=== PATIENT | female | born 1945 | race Caucasian/White ===

== ENCOUNTER 2019-12-28 11:13 | Outpatient (CLI) | payer OTHER, SELFPAY ==
[2019-12-28 11:25] LABS: Basophils Absolute Auto 0.1 K/mm3 (0.0-0.1); Basophils Percent Auto 1.4 % (0.2-1.2); Eosinophils Absolute Auto 0.1 K/mm3 (0-0.3); Eosinophils Percent Auto 1.6 % (0-4.4); Hematocrit 41.4 % (37.0-47.0); Hemoglobin 13.7 g/dL (12.0-15.0); Immature Granulocyte Absolute 0.01 K/mm3 (0.00-0.031); Immature Granulocyte Percent A 0.2 % (0-0.5); Lymphocytes Percent Auto 22.4 % (18.3-44.2); Mean Corpuscular HGB Conc 33.1 g/dl (32-36); Mean Corpuscular Hemoglobin 29.8 pg (26-34); Mean Corpuscular Volume 90.2 fl (80-100); Mean Platelet Volume 10.6 fl (7.4-10.4); Monocytes Absolute Auto 0.6 K/mm3 (0.1-0.6); Monocytes Percent Auto 9.3 % (2.6-8.5); Neutrophils Absolute Auto 4.1 K/mm3 (1.3-6.7); Neutrophils Percent Auto 65.1 % (45.5-73.1); Platelet Count Result 226 k/mm3 (150-375); Red Blood Count 4.59 M/mm3 (4.2-5.4); Red Cell Distribution Width 14.5 % (11.5-14.5); White Blood Count 6.2 K/mm3 (4.5-10.0)
[2019-12-28 11:42] LABS: Blood Urea Nitrogen 16 mg/dL (8-26); Carbon Dioxide 28 mmol/L (22-30); Chloride 103 mmol/L (98-109); Estimated Glomerular Filt Rate > 60; Glucose 92 mg/dL (70-105); Potassium 3.6 mmol/L (3.5-4.9); Sodium 140 mmol/L (138-146)
[2019-12-28 12:13] LABS: Alanine Aminotransferase 101 U/L (4-35); Albumin Level 3.8 g/dL (3.5-5.1); Alkaline Phosphatase 132 U/L (38-126); Aspartate Amino Transferase 85 U/L (14-36); Bilirubin,Total 0.9 mg/dL (0.2-1.3); Blood Urea Nitrogen 17 mg/dL (7-17); Calcium 9.4 mg/dL (8.4-10.2); Carbon Dioxide 27 mmol/L (22-30); Chloride 105 mmol/L (98-107); Estimated Glomerular Filt Rate > 60; Glucose 90 mg/dL (65-105); Potassium 3.8 mmol/L (3.4-5.0); Sodium 139 mmol/L (137-145)
[2019-12-31 10:04] LABS: CA 27.29 24 U/mL (<38)
== END 2019-12-28 11:14 | disposition home or self-care (01) ==
LOC: ANHLAB 11:15
PROVIDERS: PCP Internal Medicine; Visit Provider Internal Medicine Hematology & Oncology
DX: C50.412 Malignant neoplasm of upper-outer quadrant of left female breast (principal); Z17.0 Estrogen receptor positive status [ER+]
CPT/HCPCS: 36415; 80048; 80053; 85025; 86300

== ENCOUNTER 2020-02-14 08:45 | Outpatient (CLI) | payer OTHER, SELFPAY ==
--- NOTE | ~2020-02-14 | DEXA_ITS ---
Bone Density Report Name: Ellie Ga Age: 74 Sex: Female Ethnicity: White Date of : 1945 Indication: postmenopausal; height loss; prior fracture; cancer; hysterectomy; Referring Provider: Joce Clancy Study: Bone densitometry was performed. Exam Date: February 14, 2020 Accession number: [id number] Bone Density: Region BMD T-score Z-score Classification AP Spine (L1-L4) 1.020 -0.2 2.1 Normal Femoral Neck (Left) 0.734 -1.0 1.0 Normal Total Hip (Left) 0.907 -0.3 1.4 Normal Total Hip Bilateral Avg 0.898 -0.4 1.3 Normal Femoral Neck (Right) 0.773 -0.7 1.3 Normal Total Hip (Right) 0.887 -0.4 1.2 Normal World Health Organization criteria for BMD impression classify patients as: Normal (T-score at or above -1.0), Osteopenia (T-score between -1.0 and -2.5), or Osteoporosis (T-score at or below -2.5). 10-year Fracture Risk: FRAX not reported because: All T-scores for Spine Total, Hip Total, Femoral Neck at or above -1.0 Previous Exams: Region Exam Age BMD T-score BMD Change BMD Change Date g/cm2 vs Baseline vs Previous AP Spine(L1-L4) 02/14/2020 74 1.020 -0.2 0.005(0.5%)# -0.007(-0.7%)# 12/22/2012 67 1.027 -0.2 0.011(1.1%)# -0.043(-4.0%)# 08/05/2008 62 1.070 0.2 0.055(5.4%)* 0.055(5.4%)* 01/08/2005 59 1.016 -0.3 Total Hip(Left) 02/14/2020 74 0.907 -0.3 0.003(0.3%)# -0.025(-2.7%)# 12/22/2012 67 0.933 -0.1 0.028(3.1%)# 0.017(1.8%)# 08/05/2008 62 0.916 -0.2 0.012(1.3%) 0.012(1.3%) 01/08/2005 59 0.904 -0.3 Total Hip(Right) 02/14/2020 74 0.887 -0.4 -0.052(-5.5%)# -0.027(-3.0%)# 12/22/2012 67 0.914 -0.2 -0.025(-2.6%)# -0.021(-2.3%)# 08/05/2008 62 0.936 -0.1 -0.003(-0.4%) -0.003(-0.4%) 01/08/2005 59 0.939 0.0 *Denotes significance at 95% confidence level, LSC for AP Spine = 0.022 g/cm2, LSC for Total Hip = 0.027 g/cm2 Clinical Information Provided by Patient: Has had a low trauma fracture Has used the following medications: Vitamin D, Calcium Has the following medical conditions: Cancer, Hysterectomy Patient maximum height was 63.5 Menopause Age: 52 No regular weight bearing exercise Drinks caffeinated beverages Onset of menses at age 13 Number of children 2 Impression: The patient has normal bone mass. The patient has risk factors, including: previous fracture. No significant bone loss was observed. Discussion: BONE DENSITY IS ABOVE THE MINIMUM DESIRABLE LEV
== END 2020-02-14 08:46 | disposition home or self-care (01) ==
LOC: ANHIMG 08:47
PROVIDERS: PCP Internal Medicine; Visit Provider Internal Medicine Hematology & Oncology
DX: M85.89 Other specified disorders of bone density and structure, multiple sites (principal)
CPT/HCPCS: 77080

== ENCOUNTER 2020-03-13 11:01 | Outpatient (CLI) | payer MEDICARE, SELFPAY ==
--- NOTE | ~2020-03-13 | MMUS_ITS ---
EXAMINATION: MM diagnostic olga LT w patty, US breast LT complete HISTORY: Six-month follow-up of left breast; status post partial left mastectomy for breast cancer, F ebruary 2019 TECHNIQUE: ML, MLO and cc 3-D tomosynthesis images of the left breast were performed and synthetic 2- D images were generated. Rotated lateral craniocaudal view of left breast. CAD analysis was submitted and interpreted. High resolution breast ultrasound was performed. COMPARISON: 08/23/2019 bilateral diagnostic digital mammogram 11/30/2018 left mammographic localization 09/24/2018 bilateral Limited breast ultrasound BREAST PARENCHYMAL COMPOSITION: There are scattered areas of fibroglandular density. FINDINGS: MAMMOGRAPHIC FINDINGS: Surgical clips and associated soft tissue opacity are noted at the very posterior margin of the inner aspect of the lower outer quadrant of the left breast; these are likely postoperative changes, with some diminished surrounding density compared to 08/23/2019. There are benign calcifications. No interval suspicious mass or new architectural distortion or malig nant calcification, skin thickening or retraction is evident. ULTRASOUND: At 4:00 5 cm from the nipple there is an antiparallel irregular approximately 7 mm area of hypoechoge nicity with posterior shadowing. Ultrasound-guided biopsy is recommended. Probable postoperative seroma at 5:00 7 cm from the nipple in the area of the scar. No internal vascu larity is noted at this site. IMPRESSION: 1. Status post left partial mastectomy for breast cancer, with probable postoperative seroma at 5:00 7 cm from nipple 2. Ultrasound-guided biopsy of left breast 7 mm irregular hypoechoic lesion at at 4:00 5 cm from nipp le is recommended BI-RADS category 4, suspicious findings. Dr. Noriega notified Taylor of the findings and ultrasound guided biopsy recommendation on 04/01/2020 at 14 40 hours. Reviewed, dictated and finalized at location A. IMPRESSION: 1. Status post left partial mastectomy for breast cancer, with probable postope rative seroma at 5:00 7 cm from nipple 2. Ultrasound-guided biopsy of left breast 7 mm irregular hypoechoic lesion at at 4:00 5 cm from nipple is recommended BI-RADS category 4, suspicious findings. Dr. Noriega notified Taylor of the findings and ultrasound guided biopsy recommendat ion on 04/01/2020 at 1440 hours.
== END 2020-03-13 11:02 | disposition home or self-care (01) ==
PROVIDERS: PCP Internal Medicine; Visit Provider Internal Medicine Hematology & Oncology
DX: C50.412 Malignant neoplasm of upper-outer quadrant of left female breast (principal); Z17.0 Estrogen receptor positive status [ER+]; R92.8 Other abnormal and inconclusive findings on diagnostic imaging of breast
CPT/HCPCS: 76641; 77061; 77065; G0279

== ENCOUNTER 2020-03-21 11:02 | Outpatient (CLI) | payer MEDICARE, SELFPAY ==
[2020-03-21 11:18] LABS: Basophils Absolute Auto 0.1 K/mm3 (0.0-0.1); Basophils Percent Auto 1.2 % (0.2-1.2); Eosinophils Absolute Auto 0.1 K/mm3 (0-0.3); Eosinophils Percent Auto 1.5 % (0-4.4); Hemoglobin 14.5 g/dL (12.0-15.0); Immature Granulocyte Absolute 0.01 K/mm3 (0.00-0.031); Immature Granulocyte Percent A 0.2 % (0-0.5); Lymphocytes Absolute Auto 1.41 K/mm3 (0.9-3.2); Lymphocytes Percent Auto 21.8 % (18.3-44.2); Mean Corpuscular Hemoglobin 29.9 pg (26-34); Mean Corpuscular Volume 90.7 fl (80-100); Mean Platelet Volume 10.8 fl (7.4-10.4); Monocytes Absolute Auto 0.6 K/mm3 (0.1-0.6); Monocytes Percent Auto 8.8 % (2.6-8.5); Neutrophils Absolute Auto 4.3 K/mm3 (1.3-6.7); Neutrophils Percent Auto 66.5 % (45.5-73.1); Platelet Count Result 237 k/mm3 (150-375); Red Blood Count 4.85 M/mm3 (4.2-5.4); Red Cell Distribution Width 14.7 % (11.5-14.5); White Blood Count 6.5 K/mm3 (4.5-10.0)
[2020-03-21 11:23] LABS: Blood Urea Nitrogen 20 mg/dL (8-26); Carbon Dioxide 28 mmol/L (22-30); Chloride 102 mmol/L (98-109); Estimated Glomerular Filt Rate > 60; Glucose 92 mg/dL (70-105); Potassium 3.5 mmol/L (3.5-4.9); Sodium 142 mmol/L (138-146)
[2020-03-21 12:42] LABS: Alanine Aminotransferase 71 U/L (4-35); Albumin Level 4.2 g/dL (3.5-5.1); Alkaline Phosphatase 143 U/L (38-126); Aspartate Amino Transferase 58 U/L (14-36); Bilirubin,Total 1.1 mg/dL (0.2-1.3); Blood Urea Nitrogen 20 mg/dL (7-17); Calcium 9.5 mg/dL (8.4-10.2); Carbon Dioxide 30 mmol/L (22-30); Chloride 103 mmol/L (98-107); Estimated Glomerular Filt Rate > 60; Glucose 94 mg/dL (65-105); Potassium 3.8 mmol/L (3.4-5.0); Sodium 140 mmol/L (137-145)
== END 2020-03-21 11:03 | disposition home or self-care (01) ==
LOC: ANHLAB 11:04
PROVIDERS: PCP Internal Medicine; Visit Provider Internal Medicine Hematology & Oncology
DX: C50.412 Malignant neoplasm of upper-outer quadrant of left female breast (principal); Z17.0 Estrogen receptor positive status [ER+]
CPT/HCPCS: 36415; 80048; 80053; 85025

== ENCOUNTER 2020-03-28 13:02 | Outpatient (CLI) | payer MEDICARE, SELFPAY ==
--- NOTE | ~2020-03-28 | US_ITS ---
EXAMINATION: US breast LT limited HISTORY: Patient with history of malignant neoplasm of the left breast status post lumpectomy presen ts for biopsy of an indeterminate left breast mass TECHNIQUE: Limited left breast ultrasound is performed. COMPARISON: 03/13/2020, 11/30/2018 FINDINGS: The area of concern on recent diagnostic mammogram and ultrasound in the lower outer quadra nt of the breast appears to be contiguous with a subtle scar in the skin surface and likely reflects postoperative change. This was discussed with the patient and a plan for follow-up diagnostic left ma mmogram and ultrasound in six months was decided upon. IMPRESSION: Probably benign scarring in the left breast post lumpectomy. Recommend follow-up left diagnostic mamm ogram and ultrasound in six months. BI-RADS category 3, probably benign findings. Reviewed, dictated and finalized at location A. IMPRESSION: Probably benign scarring in the left breast post lumpectomy. Recommend follow-u p left diagnostic mammogram and ultrasound in six months. BI-RADS category 3, probably benign findings.
== END 2020-03-28 13:03 | disposition home or self-care (01) ==
PROVIDERS: PCP Internal Medicine; Visit Provider Internal Medicine Hematology & Oncology
DX: C50.412 Malignant neoplasm of upper-outer quadrant of left female breast (principal); Z17.0 Estrogen receptor positive status [ER+]
CPT/HCPCS: 76642

== ENCOUNTER 2020-06-16 09:05 | Outpatient (CLI) | payer MEDICARE, SELFPAY ==
[2020-06-16 09:29] LABS: Basophils Absolute Auto 0.1 K/mm3 (0.0-0.1); Basophils Percent Auto 1.5 % (0.2-1.2); Eosinophils Absolute Auto 0.1 K/mm3 (0-0.3); Eosinophils Percent Auto 1.8 % (0-4.4); Hematocrit 45.4 % (37.0-47.0); Hemoglobin 14.9 g/dL (12.0-15.0); Immature Granulocyte Absolute 0.01 K/mm3 (0.00-0.031); Immature Granulocyte Percent A 0.2 % (0-0.5); Lymphocytes Absolute Auto 1.23 K/mm3 (0.9-3.2); Lymphocytes Percent Auto 22.7 % (18.3-44.2); Mean Corpuscular HGB Conc 32.8 g/dl (32-36); Mean Corpuscular Hemoglobin 29.6 pg (26-34); Mean Corpuscular Volume 90.1 fl (80-100); Mean Platelet Volume 10.8 fl (7.4-10.4); Monocytes Absolute Auto 0.6 K/mm3 (0.1-0.6); Monocytes Percent Auto 10.7 % (2.6-8.5); Neutrophils Absolute Auto 3.4 K/mm3 (1.3-6.7); Neutrophils Percent Auto 63.1 % (45.5-73.1); Platelet Count Result 226 k/mm3 (150-375); Red Blood Count 5.04 M/mm3 (4.2-5.4); Red Cell Distribution Width 14.2 % (11.5-14.5); White Blood Count 5.4 K/mm3 (4.5-10.0)
[2020-06-16 13:15] LABS: Alanine Aminotransferase 121 U/L (4-35); Albumin Level 4.3 g/dL (3.5-5.1); Alkaline Phosphatase 156 U/L (38-126); Anion Gap 10 mmol/L (8-16); Aspartate Amino Transferase 66 U/L (14-36); Bilirubin,Total 0.6 mg/dL (0.2-1.3); Blood Urea Nitrogen 20 mg/dL (7-17); Calcium 9.5 mg/dL (8.4-10.2); Carbon Dioxide 26 mmol/L (22-30); Chloride 102 mmol/L (98-107); Estimated Glomerular Filt Rate > 60; Glucose 99 mg/dL (65-105); Potassium 3.7 mmol/L (3.4-5.0); Sodium 138 mmol/L (137-145)
== END 2020-06-16 09:06 | disposition home or self-care (01) ==
PROVIDERS: PCP Internal Medicine; Visit Provider Internal Medicine Hematology & Oncology
DX: C50.412 Malignant neoplasm of upper-outer quadrant of left female breast (principal); Z17.0 Estrogen receptor positive status [ER+]
CPT/HCPCS: 36415; 80053; 85025

== ENCOUNTER 2020-09-15 09:05 | Outpatient (CLI) | payer MEDICARE, SELFPAY ==
[2020-09-15 09:34] LABS: Basophils Absolute Auto 0.1 K/mm3 (0.0-0.1); Basophils Percent Auto 1.5 % (0.2-1.2); Eosinophils Absolute Auto 0.1 K/mm3 (0-0.3); Eosinophils Percent Auto 2.4 % (0-4.4); Hematocrit 42.6 % (37.0-47.0); Immature Granulocyte Absolute 0.01 K/mm3 (0.00-0.031); Immature Granulocyte Percent A 0.2 % (0-0.5); Lymphocytes Absolute Auto 1.26 K/mm3 (0.9-3.2); Lymphocytes Percent Auto 26.9 % (18.3-44.2); Mean Corpuscular HGB Conc 32.9 g/dl (32-36); Mean Corpuscular Hemoglobin 29.9 pg (26-34); Mean Platelet Volume 10.5 fl (7.4-10.4); Monocytes Absolute Auto 0.6 K/mm3 (0.1-0.6); Monocytes Percent Auto 11.8 % (2.6-8.5); Neutrophils Absolute Auto 2.7 K/mm3 (1.3-6.7); Neutrophils Percent Auto 57.2 % (45.5-73.1); Platelet Count Result 246 k/mm3 (150-375); Red Blood Count 4.68 M/mm3 (4.2-5.4); Red Cell Distribution Width 14.6 % (11.5-14.5); White Blood Count 4.7 K/mm3 (4.5-10.0)
[2020-09-15 10:05] LABS: Alanine Aminotransferase 48 U/L (4-35); Albumin Level 3.7 g/dL (3.5-5.1); Alkaline Phosphatase 130 U/L (38-126); Anion Gap 7 mmol/L (8-16); Aspartate Amino Transferase 45 U/L (14-36); Bilirubin,Total 0.8 mg/dL (0.2-1.3); Blood Urea Nitrogen 16 mg/dL (7-17); Calcium 9.5 mg/dL (8.4-10.2); Carbon Dioxide 30 mmol/L (22-30); Chloride 104 mmol/L (98-107); Estimated Glomerular Filt Rate > 60; Glucose 105 mg/dL (65-105); Potassium 3.8 mmol/L (3.4-5.0); Sodium 141 mmol/L (137-145)
[2020-09-15 10:09] LABS: Hemoglobin A1C 5.4 % (<5.7)
[2020-09-15 13:25] LABS: Vitamin D 25 Hydroxy 83.8 ng/mL
== END 2020-09-15 09:06 | disposition home or self-care (01) ==
LOC: ANHLAB 09:06
PROVIDERS: PCP Internal Medicine; Visit Provider Internal Medicine Hematology & Oncology
DX: R73.03 Prediabetes (principal); C50.412 Malignant neoplasm of upper-outer quadrant of left female breast; Z17.0 Estrogen receptor positive status [ER+]; Z85.3 Personal history of malignant neoplasm of breast; Z78.0 Asymptomatic menopausal state; E55.9 Vitamin D deficiency, unspecified
CPT/HCPCS: 36415; 80053; 82306; 83036; 85025

== ENCOUNTER 2020-09-15 11:17 | Outpatient (CLI) | payer MEDICARE, SELFPAY ==
--- NOTE | ~2020-09-15 | MMUS_ITS ---
EXAMINATION: MM diagnostic olga BI w patty, US breast LT limited HISTORY: Six-month follow-up; status post left partial mastectomy and radiotherapy for breast maligna [id number]. History of right partial mastectomy and radiation treatment for right breast malignancy in 1995. TECHNIQUE: ML, MLO and craniocaudal 3-D tomosynthesis images of both breasts were performed and synth etic 2-D images were generated. Rotated lateral craniocaudal view of left breast. CAD analysis was pereira bmitted and interpreted. High resolution limited left breast ultrasound examination was performed. COMPARISON: 03/28/2020 limited left breast ultrasound 03/13/2020 diagnostic left digital mammogram and complete left breast ultrasound examination BREAST PARENCHYMAL COMPOSITION: There are scattered areas of fibroglandular density. FINDINGS: MAMMOGRAPHIC FINDINGS: Surgical clips and associated up to 12 x 27 mm soft tissue opacity is noted in the posterior inner as pect of the lower outer quadrant of the left breast, likely postoperative scarring. Six-month follow- up is recommended to ensure stability in order to exclude any possible residual or recurrent malignan cy at this site. No interval suspicious mass or new architectural distortion is evident. Bilateral benign calcificatio ns are again noted. ULTRASOUND: The previously reported antiparallel irregular approximately 7 mm area of hypoechogenicity with poste rior shadowing at 4:00 5 cm from the nipple noted on 03/13/2020 complete left breast ultrasound is not evident on the current examination. There is again stable prominent hypoechogenicity and posterior shadowing of the left breast at 5:00 p osterior to the scar,shadowing measuring up to approximately 11 x 10 x 25 mm. This is likely due to p ostoperative scar. Six-month follow-up is recommended. IMPRESSION: 6 month follow-up diagnostic left mammographic and left breast ultrasound imaging are recommended for probable postoperative scarring in the inner posterior aspect of the lower outer quadrant BI-RADS category 3, probably benign findings. Reviewed, dictated and finalized at location A. WAY MAINTAINER IMPRESSION: 6 month follow-up diagnostic left mammographic and left breast ultrasound imagi ng are recommended for probable postoperative scarring in the inner posterior a spect of the lower outer quadrant BI-RADS category 3, probably benign findings.
== END 2020-09-15 11:18 | disposition home or self-care (01) ==
LOC: ANHIMG 11:19
PROVIDERS: PCP Internal Medicine; Visit Provider Nurse Practitioner Adult Health
DX: C50.412 Malignant neoplasm of upper-outer quadrant of left female breast (principal); Z17.0 Estrogen receptor positive status [ER+]; R92.8 Other abnormal and inconclusive findings on diagnostic imaging of breast
CPT/HCPCS: 36415; 76642; 77062; 77066; 80053; 82306; 83036; 85025; G0279

== ENCOUNTER 2021-01-09 09:02 | Outpatient (CLI) | payer OTHER, SELFPAY ==
[2021-01-09 09:18] LABS: Basophils Absolute Auto 0.1 K/mm3 (0.0-0.1); Basophils Percent Auto 1.9 % (0.2-1.2); Eosinophils Absolute Auto 0.1 K/mm3 (0-0.3); Eosinophils Percent Auto 2.1 % (0-4.4); Hematocrit 43.8 % (37.0-47.0); Hemoglobin 14.4 g/dL (12.0-15.0); Immature Granulocyte Absolute 0.01 K/mm3 (0.00-0.031); Immature Granulocyte Percent A 0.2 % (0-0.5); Lymphocytes Absolute Auto 1.32 K/mm3 (0.9-3.2); Lymphocytes Percent Auto 27.2 % (18.3-44.2); Mean Corpuscular HGB Conc 32.9 g/dl (32-36); Mean Corpuscular Hemoglobin 30.4 pg (26-34); Mean Corpuscular Volume 92.4 fl (80-100); Mean Platelet Volume 10.2 fl (7.4-10.4); Monocytes Absolute Auto 0.6 K/mm3 (0.1-0.6); Monocytes Percent Auto 11.7 % (2.6-8.5); Neutrophils Absolute Auto 2.8 K/mm3 (1.3-6.7); Neutrophils Percent Auto 56.9 % (45.5-73.1); Platelet Count Result 243 k/mm3 (150-375); Red Blood Count 4.74 M/mm3 (4.2-5.4); Red Cell Distribution Width 14.6 % (11.5-14.5); White Blood Count 4.9 K/mm3 (4.5-10.0)
[2021-01-09 15:35] LABS: Alanine Aminotransferase 42 U/L (4-35); Albumin Level 4.5 g/dL (3.5-5.1); Alkaline Phosphatase 142 U/L (38-126); Anion Gap 9 mmol/L (8-16); Aspartate Amino Transferase 40 U/L (14-36); Bilirubin,Total 0.9 mg/dL (0.2-1.3); Blood Urea Nitrogen 13 mg/dL (7-17); Calcium 9.9 mg/dL (8.4-10.2); Carbon Dioxide 30 mmol/L (22-30); Chloride 102 mmol/L (98-107); Estimated Glomerular Filt Rate > 60; Glucose 99 mg/dL (65-105); Potassium 3.8 mmol/L (3.4-5.0); Sodium 141 mmol/L (137-145)
[2021-01-09 16:09] LABS: Vitamin D 25 Hydroxy 96.2 ng/mL
[2021-01-16 23:04] LABS: CA 15-3 17 U/mL (<32)
== END 2021-01-09 09:03 | disposition home or self-care (01) ==
LOC: ANHLAB 09:03
PROVIDERS: PCP Internal Medicine; Visit Provider Internal Medicine Hematology & Oncology
DX: C50.412 Malignant neoplasm of upper-outer quadrant of left female breast (principal); Z17.0 Estrogen receptor positive status [ER+]; Z85.3 Personal history of malignant neoplasm of breast; E55.9 Vitamin D deficiency, unspecified
CPT/HCPCS: 36415; 80053; 82306; 85025; 86300

== ENCOUNTER 2021-04-23 11:45 | Outpatient (CLI) | payer OTHER, SELFPAY ==
[2021-04-23 12:02] LABS: Basophils Absolute Auto 0.1 K/mm3 (0.0-0.1); Basophils Percent Auto 1.1 % (0.2-1.2); Eosinophils Absolute Auto 0.1 K/mm3 (0-0.3); Eosinophils Percent Auto 1.1 % (0-4.4); Hematocrit 44.3 % (37.0-47.0); Hemoglobin 14.5 g/dL (12.0-15.0); Immature Granulocyte Absolute 0.01 K/mm3 (0.00-0.031); Immature Granulocyte Percent A 0.2 % (0-0.5); Lymphocytes Absolute Auto 1.29 K/mm3 (0.9-3.2); Lymphocytes Percent Auto 19.5 % (18.3-44.2); Mean Corpuscular HGB Conc 32.7 g/dl (32-36); Mean Corpuscular Hemoglobin 30.1 pg (26-34); Mean Corpuscular Volume 91.9 fl (80-100); Mean Platelet Volume 10.6 fl (7.4-10.4); Monocytes Absolute Auto 0.6 K/mm3 (0.1-0.6); Monocytes Percent Auto 8.4 % (2.6-8.5); Neutrophils Absolute Auto 4.6 K/mm3 (1.3-6.7); Neutrophils Percent Auto 69.7 % (45.5-73.1); Platelet Count Result 231 k/mm3 (150-375); Red Blood Count 4.82 M/mm3 (4.2-5.4); Red Cell Distribution Width 14.2 % (11.5-14.5); White Blood Count 6.6 K/mm3 (4.5-10.0)
[2021-04-23 17:29] LABS: Potassium 3.9 mmol/L (3.4-5.0)
[2021-04-23 17:32] LABS: Alanine Aminotransferase 38 U/L (4-35); Albumin Level 4.2 g/dL (3.5-5.1); Alkaline Phosphatase 153 U/L (38-126); Anion Gap 9 mmol/L (8-16); Aspartate Amino Transferase 38 U/L (14-36); Bilirubin,Total 0.7 mg/dL (0.2-1.3); Blood Urea Nitrogen 17 mg/dL (7-17); Calcium 9.7 mg/dL (8.4-10.2); Carbon Dioxide 29 mmol/L (22-30); Chloride 102 mmol/L (98-107); Estimated Glomerular Filt Rate > 60; Glucose 99 mg/dL (65-105); Sodium 140 mmol/L (137-145)
[2021-04-29 13:54] LABS: CA 15-3 17 U/mL (<32)
== END 2021-04-23 11:46 | disposition home or self-care (01) ==
LOC: ANHLAB 11:47
PROVIDERS: PCP Internal Medicine; Visit Provider Internal Medicine Hematology & Oncology
DX: C50.412 Malignant neoplasm of upper-outer quadrant of left female breast (principal); Z17.0 Estrogen receptor positive status [ER+]
CPT/HCPCS: 36415; 80053; 85025; 86300

== ENCOUNTER 2021-04-23 12:02 | Outpatient (CLI) | payer OTHER, SELFPAY ==
--- NOTE | ~2021-04-23 | MMUS_ITS ---
EXAMINATION: MM diagnostic olga LT w patty, US breast LT limited HISTORY: Follow-up for probably benign focal asymmetry of the left breast TECHNIQUE: Craniocaudal, mediolateral, and mediolateral oblique 3-D tomosynthesis images of the left breast were performed and synthetic 2-D images were generated. CAD analysis was submitted and interpr eted. High resolution limited left breast ultrasound was performed. COMPARISON: 09/15/2020, 03/28/2020, 03/13/2020, 08/23/2019 BREAST PARENCHYMAL COMPOSITION: There are scattered areas of fibroglandular density. FINDINGS: MAMMOGRAPHIC FINDINGS: There are lumpectomy changes in the posterior third of the lower-outer breast. Focal asymmetry at the surgical site persists but has slightly decreased when compared to prior examinations. No new mass, calcification, or architectural distortion are identified. ULTRASOUND: Again seen is a heterogeneous cystic and solid area at the 5:00 location 10 cm from the nipple near t he surgical scar which does not demonstrate significant interval change since the prior examination. IMPRESSION: 1. Mammographic and sonographic changes of the left breast likely related to lumpectomy. 2. Recommend 6 month follow-up bilateral diagnostic mammogram with left breast ultrasound. BI-RADS category 3, probably benign findings. Reviewed, dictated and finalized at location A. IMPRESSION: 1. Mammographic and sonographic changes of the left breast likely related to martha mpectomy. 2. Recommend 6 month follow-up bilateral diagnostic mammogram with left breast ultrasound. BI-RADS category 3, probably benign findings.
== END 2021-04-23 12:03 | disposition home or self-care (01) ==
PROVIDERS: PCP Internal Medicine; Visit Provider Internal Medicine Hematology & Oncology
DX: C50.412 Malignant neoplasm of upper-outer quadrant of left female breast (principal); Z17.0 Estrogen receptor positive status [ER+]
CPT/HCPCS: 36415; 76642; 77061; 77065; 80053; 85025; 86300; G0279

== ENCOUNTER 2021-08-21 10:39 | Outpatient (CLI) | payer OTHER, SELFPAY ==
--- NOTE | ~2021-08-21 | CT_ITS ---
EXAMINATION: CT LE RT wo con DATE: 08/21/2021 11:06 INDICATION: Unilateral primary osteoarthritis, right knee. TECHNIQUE: Computed tomography (CT) of the right lower limb was performed without intravenous contras t. Automated exposure control and iterative reconstruction technique were employed. The dose-length p roduct was 1560.34 mGy-cm. COMPARISON: Right knee radiographs 05/24/2021 FINDINGS: There is varus angulation at the knee. No fracture. There is severe osteoarthritis of media l compartment and moderate osteoarthritis of lateral and patellofemoral compartments. There is a smal l knee joint effusion. There is mild right hip osteoarthritis. There is subcutaneous edema in the jeremias f and ankle. Achilles tendinopathy is noted. IMPRESSION: 1. Severe right knee osteoarthritis. 2. Small right knee joint effusion. 3. Mild right hip osteoarthritis. 4. Achilles tendinopathy. Reviewed, dictated and finalized at location A. EL CONSULTANT
== END 2021-08-21 10:40 | disposition home or self-care (01) ==
LOC: ANHIMG 10:44
PROVIDERS: PCP Internal Medicine; Visit Provider Orthopaedic Surgery
DX: M17.11 Unilateral primary osteoarthritis, right knee (principal); M25.461 Effusion, right knee; M16.11 Unilateral primary osteoarthritis, right hip; M76.61 Achilles tendinitis, right leg
CPT/HCPCS: 73700

== ENCOUNTER 2021-08-29 08:24 | Outpatient (CLI) | payer OTHER, SELFPAY ==
--- NOTE | 2021-08-29 09:02 | ECG_ITS ---
Measurements Intervals [place] Rate: 69 P: 14 [place]: 135 QRS: 42 QRSD: 102 T: 8 QT: 399 QTc: 428 Interpretive Statements SINUS RHYTHM LOW QRS VOLTAGE IN PRECORDIAL LEADS BASELINE ARTIFACT- V4-V6 BORDERLINE ECG Electronically Signed On 08-29-2021 9:15:26 [employer] by Sang Estrella D.O.
[2021-08-29 09:44] LABS: Hematocrit 43.1 % (37.0-47.0); Hemoglobin 14.2 g/dL (12.0-15.0)
[2021-08-29 10:00] LABS: Albumin Level 4.3 g/dL (3.5-5.1); Estimated Glomerular Filt Rate > 60; Glucose 94 mg/dL (65-110)
[2021-08-29 11:10] LABS: Hemoglobin A1C 5.6 % (<5.7)
== END 2021-08-29 08:25 | disposition home or self-care (01) ==
PROVIDERS: PCP Internal Medicine; Visit Provider Orthopaedic Surgery
DX: Z01.818 Encounter for other preprocedural examination (principal); M17.11 Unilateral primary osteoarthritis, right knee
CPT/HCPCS: 36415; 82040; 82565; 82947; 83036; 85014; 85018; 93005

== ENCOUNTER 2021-09-28 08:13 | Outpatient (CLI) | payer OTHER, SELFPAY ==
[2021-09-28 09:43] LABS: Urine Cotinine NEGATIVE
[2021-09-28 09:46] LABS: Anion Gap 8 mmol/L (8-16); Blood Urea Nitrogen 15 mg/dL (7-17); Calcium 9.4 mg/dL (8.4-10.2); Carbon Dioxide 28 mmol/L (22-30); Chloride 106 mmol/L (98-107); Estimated Glomerular Filt Rate > 60; Glucose 101 mg/dL (65-110); Potassium 3.7 mmol/L (3.4-5.0); Sodium 142 mmol/L (137-145)
[2021-09-28 09:48] LABS: Basophils Absolute Auto 0.1 K/mm3 (0.0-0.1); Basophils Percent Auto 2.3 % (0.2-1.2); Eosinophils Absolute Auto 0.1 K/mm3 (0-0.3); Eosinophils Percent Auto 2.3 % (0-4.4); Hematocrit 42.3 % (37.0-47.0); Hemoglobin 13.6 g/dL (12.0-15.0); Immature Granulocyte Absolute 0.02 K/mm3 (0.00-0.031); Immature Granulocyte Percent A 0.5 % (0-0.5); Lymphocytes Absolute Auto 1.13 K/mm3 (0.9-3.2); Lymphocytes Percent Auto 28.4 % (18.3-44.2); Mean Corpuscular HGB Conc 32.2 g/dl (32-36); Mean Corpuscular Hemoglobin 30.6 pg (26-34); Mean Corpuscular Volume 95.1 fl (80-100); Mean Platelet Volume 10.8 fl (7.4-10.4); Monocytes Absolute Auto 0.5 K/mm3 (0.1-0.6); Monocytes Percent Auto 12.8 % (2.6-8.5); Neutrophils Absolute Auto 2.1 K/mm3 (1.3-6.7); Neutrophils Percent Auto 53.7 % (45.5-73.1); Platelet Count Result 222 k/mm3 (150-375); Red Blood Count 4.45 M/mm3 (4.2-5.4); Red Cell Distribution Width 14.5 % (11.5-14.5)
== END 2021-09-28 08:14 | disposition home or self-care (01) ==
LOC: ANHSURGERY 08:14
PROVIDERS: Anesthesiology; PCP Internal Medicine; Visit Provider Orthopaedic Surgery
DX: M17.11 Unilateral primary osteoarthritis, right knee (principal); I10 Essential (primary) hypertension; Z01.818 Encounter for other preprocedural examination
CPT/HCPCS: 36415; 80048; 80307; 85025; 87081

== ENCOUNTER 2021-12-28 11:06 | Outpatient (CLI) | payer OTHER, SELFPAY ==
[2021-12-28 12:07] LABS: Basophils Absolute Auto 0.1 K/mm3 (0.0-0.1); Eosinophils Absolute Auto 0.1 K/mm3 (0-0.3); Eosinophils Percent Auto 0.7 % (0-4.4); Hematocrit 41.4 % (37.0-47.0); Hemoglobin 13.7 g/dL (12.0-15.0); Immature Granulocyte Absolute 0.02 K/mm3 (0.00-0.031); Immature Granulocyte Percent A 0.3 % (0-0.5); Lymphocytes Absolute Auto 0.81 K/mm3 (0.9-3.2); Lymphocytes Percent Auto 12.1 % (18.3-44.2); Mean Corpuscular HGB Conc 33.1 g/dl (32-36); Mean Corpuscular Hemoglobin 30.4 pg (26-34); Mean Corpuscular Volume 91.8 fl (80-100); Mean Platelet Volume 11.1 fl (7.4-10.4); Monocytes Absolute Auto 0.5 K/mm3 (0.1-0.6); Monocytes Percent Auto 6.9 % (2.6-8.5); Neutrophils Absolute Auto 5.3 K/mm3 (1.3-6.7); Platelet Count Result 242 k/mm3 (150-375); Red Blood Count 4.51 M/mm3 (4.2-5.4); Red Cell Distribution Width 14.6 % (11.5-14.5); White Blood Count 6.7 K/mm3 (4.5-10.0)
[2021-12-28 12:11] LABS: Urine Cotinine NEGATIVE
[2021-12-28 12:20] LABS: Albumin Level 4.3 g/dL (3.5-5.1)
[2021-12-28 12:25] LABS: Anion Gap 6 mmol/L (8-16); Blood Urea Nitrogen 14 mg/dL (7-17); Calcium 9.4 mg/dL (8.4-10.2); Carbon Dioxide 30 mmol/L (22-30); Chloride 104 mmol/L (98-107); Estimated Glomerular Filt Rate > 60; Glucose 104 mg/dL (65-110); Potassium 3.5 mmol/L (3.4-5.0); Sodium 140 mmol/L (137-145)
[2021-12-28 12:32] LABS: Hemoglobin A1C 5.4 % (<5.7)
== END 2021-12-28 11:07 | disposition home or self-care (01) ==
LOC: ANHSURGERY 11:09
PROVIDERS: Anesthesiology; PCP Internal Medicine; Visit Provider Orthopaedic Surgery
DX: M17.11 Unilateral primary osteoarthritis, right knee (principal); Z79.899 Other long term (current) drug therapy; Z01.818 Encounter for other preprocedural examination
CPT/HCPCS: 80048; 80307; 82040; 83036; 85025; 86850; 86900; 86901; 87081

== ENCOUNTER → 2021-12-29 00:28 | Outpatient (CLI) | payer OTHER, SELFPAY ==
[2021-12-29 11:30] LABS: SARS-CoV-2 RNA PCR Negative
== END ==
PROVIDERS: PCP Internal Medicine; Visit Provider Orthopaedic Surgery
DX: Z01.812 Encounter for preprocedural laboratory examination (principal); Z20.822 Contact with and (suspected) exposure to COVID-19
CPT/HCPCS: C9803; U0003; U0005

== ENCOUNTER 2022-01-01 | Day surgery (SDC) | payer OTHER, SELFPAY ==
--- NOTE | 2021-09-28 08:47 | PC.NURSE ---
Report to the Outpatient Waiting Room, entrance under the green pavilion located off [facility], at time _0600 on date _10/25/21 . OR Time: 0730 . - You and your visitor will be asked a series of questions to screen for COVID 19 for your protection. - A mask is required within the hospital. - Only one visitor is allowed at this time. Patient visitors will be guided where to wait when not with patient. Preoperative COVID Testing Requirements: No COVID Test needed if: (proof is required; if not received patient will have Rapid Test prior to entry) COVID TESTING 10/22/21 AT 0930 - Patient has received COVID Vaccine at least 14 days prior to procedure date or - Patient has positive COVID test result within last 90 days of surgery date. COVID Test needed if above criteria is not met If not COVID vaccinated a COVID test must be conducted within 72 hours of surgery and patient is asked to isolate self from time of testing until procedure. You will go to the [facility] for your COVID testing. The [facility] site is located at the corner of [address] [facility]. You will only be called if COVID results are positive and your surgeon may reschedule your elective surgery date. Patients may have clear liquids (water, carbonated beverages, clear teas, apple juice) until 3 hours prior to surgery with a maximum of 20 ounces. - No food from midnight until time of surgery - Infants may have breast milk until 4 hours before surgery, infant formula 6 hours prior to surgery. - Children will be allowed to drink immediately following surgery. If applicable, please bring a bottle or sippy cup to assist with drinking. Juice, water, soda, and popsicles are readily available. For infants on formula, please bring formula the day of surgery. Pacifiers are allowed. Take the following medications with a SIP of water the morning of surgery: _NONE Medications to discontinue per physician ____ASPIRIN,,IBURPOFEN,NIACIN 7DAYS PRE OP AND ALL VITAMINS AND SUPPLEMENTS 3 DAYS PRE OP Date to take last dose__10/17/21___--- 10/21/21 Please no make-up, nail albanian, hairspray, perfume, deodorant, or body powder the day of surgery. No jewelry (including any body piercings) or valuables the day of surgery, leave them at home. Please take a shower or bath the night before, or the morning of, surgery with an antibacterial soap. Wear comfortable, loose fitting clothing. Children are encouraged to wear pajamas. - Jewelry must be removed prior to entering the operating room. Rings and piercings that are not removed may be cut off. - The hospital will not accept responsibility for valuables. - Please leave all valuables, including medications, at home the day of surgery. TOTAL JOINT CLASS 10/17/21 AT 10 AM If you are going home after surgery, a licensed funeral car driver must drive you home. - NO public transportation without another adult. - We recommend that an adult stay with you for 24 hours following discharge. - We also recommend that you do not drive, make important decision, drink alcoholic beverages, or take any drugs that were not prescribed by your health care provider for at least 24 hours after your discharge time. For Pediatric surgeries, we recommend two adults accompany the child home (only one inside the building at this time). Follow any additional instructions given to you from your surgeon. VERBAL instructions given to _PATIENT and asked if any additional questions and then verbalized understanding. Patient advised to call surgeon office or pre surgery nurse liaison [phone] if any additional questions.
[2021-09-28 09:05] VITALS: BP 155/65; PULSE 66; RESP 16; TEMP 36.6; O2SAT 99
--- NOTE | 2021-12-25 13:23 | PC.NURSE ---
Report to the Outpatient Waiting Room, entrance under the green pavilion located off [facility], at time _0600_ on date _01/01/22_. OR Time: _0730_. - You and your visitor will be asked a series of questions to screen for COVID 19 for your protection. - A mask is required within the hospital. One visitor will be allowed to accompany the patient into the hospital. Patients visitor will be instructed to remain with patient at all times or leave the building. VISITING HOURS 10AM-7PM, ONE VISITOR ONE TIME A DAY Preoperative COVID Testing Requirements: COVID TEST SCHEDULED FOR 12/29/21 @ 0900 A COVID test must be conducted within 72 hours of surgery and patient is asked to isolate self from time of testing until procedure. You will go to the [facility] for your COVID testing. The [facility] Testing site is located at the corner of [address] [facility]. You will only be called if COVID results are positive and your surgeon may reschedule your elective surgery date. Patients may have clear liquids (water, carbonated beverages, clear teas, apple juice) until 3 hours prior to surgery (0430 AM) with a maximum of 20 ounces. - No food from midnight until time of surgery Take the following medications with a SIP of water the morning of surgery: __NONE__ Medications to discontinue per DR. OLIVIA - _ASPIRIN, IBUPROFEN, NIACIN -PT STATS ALREADY STOPPING 12/24/21_ Medications to discontinue per ANESTHESIA - _ALL VITAMINS AND SUPPLEMENTS, 3 DAYS PRIOR TO SURGERY, Date to take last dose_12/28/21_ Please no make-up, nail wallisian, hairspray, perfume, deodorant, or body powder the day of surgery. No jewelry (including any body piercings) or valuables the day of surgery, leave them at home. Please take a shower or bath the night before, or the morning of, surgery with an antibacterial soap. Wear comfortable, loose fitting clothing. - Jewelry must be removed prior to entering the operating room. Rings and piercings that are not removed may be cut off. - The hospital will not accept responsibility for valuables. - Please leave all valuables, including medications, at home the day of surgery. If you are going home after surgery, a licensed dump truck driver off highway must drive you home. - NO public transportation without another adult. - We recommend that an adult stay with you for 24 hours following discharge. - We also recommend that you do not drive, make important decision, drink alcoholic beverages, or take any drugs that were not prescribed by your health care provider for at least 24 hours after your discharge time. Follow any additional instructions given to you from your surgeon. Telephone instructions given to PT and asked if any additional questions and then verbalized understanding. Patient advised to call surgeon office or pre surgery nurse liaison [phone] if any additional questions.
[2021-12-25 13:28] VITALS: BMI 29.9
--- NOTE | 2021-12-31 15:47 | WPDANESEPPF ---
Anes - Initial Pre Proc Eval Procedure: Operation Date: 01/01/22 07:30 Proposed Procedures p Right Custom Total Knee Replacement - Keo Carey MD Date/Time: 12/31/21 15:47 Surgeon: Keo Carey MD Pre Op Diagnosis: Meena Arroyo Right Knee Patient Data Age: 76 Gender: F Height: 1.57 m Weight: 74.3 kg Last Vital Signs Temp 36.6 C 09/28/21 09:05 Pulse 66 09/28/21 09:05 Resp 16 09/28/21 09:05 BP 155/65 H 09/28/21 09:05 Pulse Ox 99 09/28/21 09:05 Allergies Allergy/AdvReac Type Severity Reaction Status Date / Time No Known Allergies Allergy Verified 01/01/22 06:51 Home Medications Medication Instructions Recorded Confirmed Type anastrozole 1 mg PO DAILY 08/06/19 01/01/22 History cinnamon bark 500 mg PO DAILY 08/06/19 01/01/22 History grape seed extract 300 mg PO DAILY 08/06/19 01/01/22 History niacin 2,000 mg PO DAILY 08/06/19 01/01/22 History elderberry fruit and flower 1 cap PO DAILY 08/10/19 01/01/22 History omega-3 fatty acids-fish oil 4 cap PO DAILY 08/10/19 01/01/22 History folic acid 0.8 mg capsule 0.8 mg PO DAILY 07/10/20 01/01/22 History vit C,E,zinc,copper-pxlnu3c 250 1 cap PO DAILY 09/01/20 01/01/22 History mg-lutein 5 mg-zeaxanthin 1 mg capsule biotin 5,000 mcg PO DAILY 03/27/21 01/01/22 History calcium carbonate 600 mg-vitamin 1 tablet PO BID 03/27/21 01/01/22 History D3 20 mcg (800 unit) tablet cholecalciferol (vitamin D3) 125 250 mcg PO DAILY cap 03/27/21 01/01/22 History mcg (5,000 unit) capsule ibuprofen 200 mg tablet 400 mg PO Q6-8H PRN tablet 03/27/21 01/01/22 History turmeric 1,000 mg PO DAILY 03/27/21 01/01/22 History bumetanide 1 mg tablet See Rx Instructions .ROUTE 07/02/21 01/01/22 Rx .COMPLEX #90 tablet trazodone 50 mg tablet See Rx Instructions PO QHS PRN #60 08/07/21 01/01/22 Rx tablet aspirin [Adult Low Dose Aspirin] 81 mg PO DAILY 09/28/21 01/01/22 History cyanocobalamin (vitamin B-12) 1,000 mcg PO DAILY 09/28/21 01/01/22 History atorvastatin 20 mg QAM 12/25/21 01/01/22 History potassium chloride 10 meq QAM 12/25/21 01/01/22 History Patient hx anesthesia problems: none Family hx anesthesia problems: none Results Review: All pre-operative results and documents have been reviewed as part of the pre-operative evaluation. [facility] Past Medical History Medical History (Updated 01/01/22 @ 07:04 by Elian Quick DO) Abnormal finding of blood chemistry BMI 33.0-33.9,adult Cataracts, bilateral Colon cancer screening DJD (degenerative joint disease) of knee Elevated homocysteine Elevated LFTs Encounter for Medicare annual wellness exam Encounter for routine adult health examination without abnormal findings Hearing loss History of fatty infiltration of liver History of right shoulder fracture Hx of breast cancer Hyperlipidemia Obesity (BMI 30.0-34.9) On [facility] drug therapy Pedal edema Pre-diabetes Right knee meniscal tear Vitamin D deficiency Surgical History Surgical History (Updated 12/31/21 @ 15:47 by Elian Quick DO) History of hysterectomy Family History Family History Father Family history of malignant neoplasm Grandparent Colon polyp Social History Social History Smoking status: Never smoker Second hand tobacco smoke exposure: No Additional smoking assessment comments: DENIES ANY FORM OF TOBACCO USE Alcohol intake: current Drinks per week: 2 Substance use: never Substance use type: does not use Living arrangements: with family Spiritual care concerns: No Anes - Eval Final PreProcedure Day of Procedure 12/31/21 15:47 Patient weight: obese Heart: regular rate and rhythm Lungs: clear to auscultation and normal air movement Airway: Mallampati scale class II Neurological: alert and oriented Last oral intake: >/= 8 hours ASA classification: III
--- NOTE | 2021-12-31 15:52 | WPDANESPNB ---
Anes - Peripheral Nerve Block Date/Time: 12/31/21 15:52 I have discussed with the patient/family/POA the placement of a peripheral nerve block for post-operative pain management, including associated risks, benefits, complications, and side effects. Alternative methods of post-operative analgesia were detailed. Questions were solicited and answers provided to the satisfaction of the patient/family/POA. Time-Out: A pre-procedural Time-Out was completed immediately before starting the procedure and confirmed: Patient Identification, Site, Procedure, Patient Position and the Availability of Requisite Equipment. Clinical Indications: Acute post-operative pain management requested by the operative surgeon. Nerve Block Insertion Note Anes-nerve block: adductor canal right Patient position: supine Skin prep: chlorhexidine Needle: 22 gauge, stimulating, insulated echogenic needle. Needle length: 80 mm Technique: ultrasound Injectate: bupivacaine 0.5% with epi 5 mcg/ml (30cc - no epi) Observations: tolerated well Complications: none Procedure start time:: 720 Procedure end time:: 723
[2022-01-01] VITALS (13 sets, daily range): BP systolic 106–137; BP diastolic 44–82; PULSE 72–98; RESP 10–19; TEMP 35.8–37.1; O2SAT 93–100; BMI 28.3
--- NOTE | ~2022-01-01 | XR_ITS ---
EXAMINATION: XR knee RT 2V DATE: 01/01/2022 10:27 INDICATION: Postoperative evaluation following right total knee arthroplasty. TECHNIQUE: Anteroposterior and lateral views of the right knee were obtained. COMPARISON: 05/24/2021 FINDINGS: Right total knee arthroplasty with patellar resurfacing appears well seated and in near anatomic alig nment. No fractures identified. Expected postoperative subcutaneous and intra-articular gas. IMPRESSION: 1. Right total knee arthroplasty, negative for postoperative purposes. Reviewed, dictated and finalized at location A.
[2022-01-01] MEDS: ACETAMINOPHEN 500 MG TABLET 1000 MG PO (07:03)
[2022-01-01] MEDS: LACTATED RINGERS 1,000 ML 30 ML IV CONT (07:12)
[2022-01-01] MEDS: TRANEXAMIC ACID 1,000MG/ISO100 1,000 MG/100 ML BAG 200 MG IVPB (07:12)
--- NOTE | 2022-01-01 07:18 | WPDHPUPDATE1 ---
History and Physical Update Update Date/Time: 01/01/22 07:18 History and Physical has been reviewed, including an updated exam of the patient. There are NO changes in the patient's condition. Risks, benefits, and alternatives have been discussed and questions answered. Patient agrees to proceed with procedure.
[2022-01-01] MEDS: ceFAZolin 2 GM/D5W 50 ML 2 GM/50 ML BAG IVPB ×3 (07:30→23:45)
--- NOTE | 2022-01-01 10:41 | W.PM.PROC2 ---
Procedure Note - Detailed Date of Procedure 01/01/22 Pre-op Diagnosis DJD Right Knee Post-op Diagnosis Same Procedure Performed Total knee arthroplasty, right. Surgeon Keo Carey MD Dip Tube Assembler Machine Elisabeth Hardin PA-C Anesthesia General and Regional (Subsartorial block.) Description of Procedure Physician spa assistant manager, Elisabeth Hardin PA-C, required for surgery; including patient positioning, draping, tissue retraction, maintaining instrument position, cement removal, wound closure, and dressing placement. Preoperative antibiotics were given. The limb was prepped and draped in the usual sterile fashion with a well-padded tourniquet high on the thigh. The limb was exsanguinated and the tourniquet inflated to 300 mmHg during exposure and cementing. A longitudinal incision was created just medial to the patella. A trivector approach to the knee was performed. Arthrotomy was taken down through the joint capsule. No significant releases were initially taken. The femur was exposed and the F1 jig was applied. The coring tool was used to remove the cartilage for the F2 jig to sit flush with the bone. The jig was pinned and the distal cut carefully taken. Caliper measurements confirmed appropriate bony resections according to the preoperative templated plan. The F4 cutting jig for the femur was applied, at the standard rotation. The AP and anterior chamfer cuts were taken. The F5 jig was applied and the posterior chamfer cuts were taken. The tibia was prepared using the T1 jig, after removing cartilage for the jig contact points. Proper alignment was checked with the alignment last. The tibia was cut using the T1u guide. Gap balancing was performed. Gap measurements were taken and the knee was trialed. Excellent alignment and soft tissue balancing was confirmed. The posterior cruciate ligament was recessed along the proximal tibia. The patella was cut for resurfacing. Three lug holes were drilled. Meniscal remnants were removed. The trial components were assembled. Excellent range of motion and proper soft tissue balancing were confirmed throughout the full range of motion. Patellar tracking was slightly lateral, and a mild medial retinacular release performed. The knee was copiously irrigated periodically throughout the procedure. The real implants were cemented into position. Excess cement was carefully removed. The wound was closed in layers with interrupted #1 Vicryl suture, #1 strata fix suture, 0 strata fix suture, 2-0 strata fix suture. Steri-Strips placed on the skin with the knee flexed. Sterile bulky dressing applied. The patient was brought to the recovery room in stable condition. There were no complications. Implants Conformis Custom total knee arthroplasty. Cemented. Cruciate retaining. 7C insert. 32 mm oval patella. Estimated Blood Loss -100.0 Drains No Complications No immediate complications Condition Stable Disposition PACU
[2022-01-01] MEDS: SODIUM CHLORIDE 0.9% IV 1,000 ML 125 ML IV CONT (13:00)
--- NOTE | 2022-01-01 14:00 | PC.NURSE ---
This patient, Ellie Ga, was admitted to Medical Room 253-01. Patient/family oriented to hospital policies and general routines including ID bracelet, bed and alarms, visiting hours, pain management, procedures, bathroom and other care routines, personal items, smoking policy, room service/diet, and visiting hours. Information on how to activate the Rapid Response Team has been discussed. Patient/Family are encouraged to report perceived risks to care and to ask questions if they do not understand what they are told or what they should do.
[2022-01-01] MEDS: ASPIRIN 81 MG ENTERIC TABLET PO (16:43)
[2022-01-01] MEDS: MELOXICAM 7.5 MG TABLET PO (16:43)
[2022-01-01] MEDS: SENNA/DOCUSATE SODIUM TABLET 2 TAB PO (16:43)
[2022-01-01] MEDS: NIACIN SA 500 MG TABLET 2000 MG PO (20:09)
[2022-01-01] MEDS: FAMOTIDINE 20 MG TABLET PO (20:09)
[2022-01-02 01:24] VITALS: O2SAT 97
[2022-01-02 03:27] VITALS: BP 110/59; PULSE 70; RESP 18; TEMP 37.2; O2SAT 91
--- NOTE | 2022-01-02 07:53 | WPDANESPN ---
Anes - Prog Note Post-Op Date/Time: 01/02/22 07:53 Cardiovascular status: normal Respiratory status: normal Airway patency: baseline Mental status: baseline Post-Op hydration status: normal Vital Signs: Last Vital Signs Temp 98.9 F 01/02/22 03:27 Pulse 70 01/02/22 03:27 Resp 18 01/02/22 03:27 BP 110/59 L 01/02/22 03:27 Pulse Ox 91 01/02/22 03:27 Pain Score (VAS): 10/22 I/O: Intake & Output 01/01/22 01/01/22 01/02/22 15:59 23:59 07:59 Intake Total [phone] Balance [phone] Post-procedural complaints: none Patient Feedback: Patient satisfied with anesthetic care.
[2022-01-02 08:00] VITALS: O2SAT 95
[2022-01-02] MEDS: ANASTROZOLE (*CHEMO) 1 MG TABLET PO (08:34)
[2022-01-02] MEDS: ceFAZolin 2 GM/D5W 50 ML 2 GM/50 ML BAG IVPB (08:34)
[2022-01-02] MEDS: CHOLECALCIFEROL 1,000 UNITS TABLET 10000 UNITS PO (08:35)
[2022-01-02] MEDS: ATORVASTATIN 20 MG TABLET PO (08:35)
[2022-01-02] MEDS: ASPIRIN 81 MG ENTERIC TABLET PO (08:35)
[2022-01-02] MEDS: CYANOCOBALAMIN 1,000 MCG TABLET 1000 MCG PO (08:36)
[2022-01-02] MEDS: FOLIC ACID 0.4 MG TABLET 0.8 MG PO (08:36)
[2022-01-02] MEDS: SENNA/DOCUSATE SODIUM TABLET 2 TAB PO (08:36)
[2022-01-02] MEDS: FAMOTIDINE 20 MG TABLET PO (08:36)
[2022-01-02] MEDS: polyethylene glycoL 3350 17 GM POWD.PACK PO (08:37)
[2022-01-02] MEDS: MELOXICAM 7.5 MG TABLET PO (08:37)
[2022-01-02] MEDS: OPTI-GEN TAB 1 TABLET PO (08:37)
[2022-01-02] MEDS: POTASSIUM CHLORIDE 10 MEQ TABLET.ER PO (08:37)
[2022-01-02] MEDS: BUMETANIDE 1 MG TABLET PO (09:13)
[2022-01-02 09:50] VITALS: BP 134/52; PULSE 88; RESP 16; TEMP 36.6; O2SAT 99
[2022-01-02] MEDS: oxyCODONE HCL (*CRX) 5 MG TAB IR PO (11:48)
--- NOTE | 2022-01-02 11:59 | PC.NURSE ---
This racebook writer reviewed and agrees with student nurse charting and assessment.
[2022-01-02 12:27] VITALS: BMI 28.3
--- NOTE | 2022-01-02 12:42 | PM.DS ---
DS: Admitting Diagnosis Discharge Date 01/02/22 Admitting Diagnosis OA knee Right DS: Discharge Diagnosis Discharge Diagnosis (1) Status post total right knee replacement: Code(s): Z96.651 - Presence of right artificial knee joint Status: Acute Assessment and Plan: Postop day 1: Right total knee arthroplasty. Patient tolerated procedure well. No complications. Pain manageable with pain medication. No numbness or tingling. We had a lengthy discussion regarding postoperative wound care, limitations, expectations, and exercises. Patient shows good understanding. He has had initial physical therapy and is tolerating it well. DVT prophylaxis: 81 mg baby aspirin b.i.d. for 14 days. Compression socks. Short frequent walks. Pain medication: Percocet. Meloxicam. Prednisone Patient has followup appointment with Dr. Carey in 3 weeks. DS: Summary Hospital Course Reason for hospitalization: Total knee arthroplasty Hospital Course: Patient tolerated procedure well. Has had initial PT/OT. No complications. Pain well managed. Status at Discharge Functional status at discharge: uses cane/walker Overall status at discharge: patient is progressing back to baseline Time Spent with Patient Time attestation: Total time spent providing and/or coordinating discharge services: Exam Narrative: Normal weight female. Resting comfortably in chair. No acute distress. A&O x3. Wearing compression socks bilaterally. Dressing intact with small amount of bloody drainage. Moderate swelling. No ecchymosis. No erythema. No hematoma. Good early range of motion. Calf nontender. Neurologic status intact. No varicosities. Distal pulses palpable. Discharge Plan Discharge Patient Disposition: Home, Self-Care Discharge Instructions: See green instruction sheet and green medication sheet. Stand Alone Forms: General Discharge Instructions Follow-up/Referrals: Elisabeth Hardin PA [Physician Elastic Tape Inserter] - Discharge Medications: New aspirin 81 mg tablet,delayed release (DR/EC) 81 mg PO BID 14 Days Qty: 28 RF: 0 meloxicam 15 mg tablet 15 mg PO DAILY Qty: 30 RF: 0 oxycodone-acetaminophen 5-325 mg tablet 1 - 2 tablet PO Q4-6H MDD 6 PRN (Reason: pain) Qty: 30 RF: 0 prednisone 5 mg tablet 5 mg PO DAILY 21 Days Qty: 21 RF: 0 Continued anastrozole 1 mg Tablet 1 mg PO DAILY RF: 0 niacin 500 mg Tablet 2,000 mg PO DAILY RF: 0 grape seed extract 50 mg Capsule 300 mg PO DAILY RF: 0 cinnamon bark 500 mg Capsule 500 mg PO DAILY RF: 0 omega-3 fatty acids-fish oil 360-1,200 mg Capsule 4 cap PO DAILY RF: 0 elderberry fruit and flower 460-115 mg Capsule 1 cap PO DAILY RF: 0 folic acid 0.8 mg capsule 0.8 mg PO DAILY RF: 0 Ocuvite Adult 50 Plus 250-5-1 mg capsule 1 cap PO DAILY RF: 0 calcium carbonate-vitamin D3 [Caltrate with Vitamin D3] 600 mg(1,500mg) -800 unit tablet 1 tablet PO BID RF: 0 cholecalciferol (vitamin D3) 125 mcg (5,000 unit) capsule 250 mcg PO DAILY RF: 0 turmeric 1,000 mg PO DAILY RF: 0 biotin 5,000 mcg PO DAILY RF: 0 ibuprofen [Advil] 200 mg tablet 400 mg PO Q6-8H PRN (Reason: Pain) RF: 0 cyanocobalamin (vitamin B-12) 1,000 mcg Tablet 1,000 mcg PO DAILY RF: 0 atorvastatin 20 mg tablet 20 mg QAM RF: 0 potassium chloride 10 mEq tablet extended release 10 meq QAM RF: 0 bumetanide 1 mg tablet See Rx Instructions .ROUTE .COMPLEX Qty: 90 RF: 1 trazodone 50 mg tablet See Rx Instructions PO QHS PRN (Reason: sleep) Qty: 60 RF: 0 Held aspirin 81 mg Tablet 81 mg PO DAILY RF: 0 Hold Instructions: Resume on 01/16/22. Take twice a day for 2 weeks then resume normal once a day dose.
== END 2022-01-02 14:13 | disposition home or self-care (01) ==
LOC: ANHSURGERY 06:07 → ANH2MED 11:42
PROVIDERS: PCP Internal Medicine; Visit Provider Orthopaedic Surgery
PROC: (CPT 27447; principal; 2022-01-01 07:30)
DX: M17.11 Unilateral primary osteoarthritis, right knee (principal); G89.18 Other acute postprocedural pain; E78.5 Hyperlipidemia, unspecified; R73.03 Prediabetes; E55.9 Vitamin D deficiency, unspecified; Z85.3 Personal history of malignant neoplasm of breast; E66.9 Obesity, unspecified; Z68.28 Body mass index [BMI] 28.0-28.9, adult; Z79.82 Long term (current) use of aspirin
CPT/HCPCS: 27447; 64447; 73560; 80048; 80307; 82040; 83036; 85025; 86850; 86900; 86901; 87081; 97110; 97116; 97161; 97165; 97535; A9270; C1713; C1776; C9803; J0131; J0171; J0690; J1170; J1885; J2250; J2270; J2370; J2405; J2704; J2795; J3010; J7030; J7120; U0003; U0005

== ENCOUNTER 2022-02-19 11:30 | Outpatient (CLI) | payer OTHER, SELFPAY ==
--- NOTE | ~2022-02-19 | MMUS_ITS ---
EXAMINATION: MM diagnostic olga BI w patty, US breast LT limited HISTORY: Follow-up left breast asymmetries TECHNIQUE: Additional 3-D tomosynthesis images of the breasts were performed and synthetic 2-D images were generated. CAD analysis was submitted and interpreted. High resolution limited left breast ultr asound was performed. COMPARISON: Comparison to multiple prior studies sequentially, with oldest reviewed study dated 11/30. BREAST PARENCHYMAL COMPOSITION: The breasts are heterogenously dense, which may obscure small masses FINDINGS: MAMMOGRAPHIC FINDINGS: Bilateral breast asymmetries and coarse calcifications are not significantly changed. No new masses, calcifications or architectural distortion in either breast to suggest malignancy. ULTRASOUND: Limited left breast ultrasound: At 5:00, 10 cm from the nipple there is an oval hypoechoic heterogene ous mass measuring 3.2 x 1.4 x 1.6 cm with mixed posterior attenuation, parallel orientation and no s ignificant internal vascularity. This mass measured 3.2 x 2.5 x 1.9 cm on prior examination with lakeisha lar characteristics. No additional masses are identified. IMPRESSION: 1. Stable bilateral mammogram and left breast ultrasound. Asymmetric mass identified in the lower out er quadrant of the left breast, consistent with previous lumpectomy change/scarring, likely benign. 2. Recommend 6 month follow-up diagnostic left mammogram and ultrasound BI-RADS category 3, probably benign findings. Reviewed, dictated and finalized at location A. IMPRESSION: 1. Stable bilateral mammogram and left breast ultrasound. Asymmetric mass ident ified in the lower outer quadrant of the left breast, consistent with previous lumpectomy change/scarring, likely benign. 2. Recommend 6 month follow-up diagnostic left mammogram and ultrasound BI-RADS category 3, probably benign findings.
== END 2022-02-19 11:31 | disposition home or self-care (01) ==
PROVIDERS: PCP Internal Medicine; Visit Provider Internal Medicine Hematology & Oncology
DX: C50.412 Malignant neoplasm of upper-outer quadrant of left female breast (principal); Z17.0 Estrogen receptor positive status [ER+]; R92.8 Other abnormal and inconclusive findings on diagnostic imaging of breast
CPT/HCPCS: 76642; 77062; 77066; G0279

== ENCOUNTER 2022-03-05 10:15 | Outpatient (CLI) | payer OTHER, SELFPAY ==
[2022-03-05 10:47] LABS: Basophils Absolute Auto 0.1 K/mm3 (0.0-0.1); Basophils Percent Auto 1.7 % (0.2-1.2); Eosinophils Absolute Auto 0.1 K/mm3 (0-0.3); Eosinophils Percent Auto 2.1 % (0-4.4); Hematocrit 42.5 % (37.0-47.0); Hemoglobin 13.6 g/dL (12.0-15.0); Immature Granulocyte Absolute 0.01 K/mm3 (0.00-0.031); Immature Granulocyte Percent A 0.2 % (0-0.5); Lymphocytes Absolute Auto 1.23 K/mm3 (0.9-3.2); Lymphocytes Percent Auto 23.6 % (18.3-44.2); Mean Corpuscular Hemoglobin 29.6 pg (26-34); Mean Corpuscular Volume 92.4 fl (80-100); Mean Platelet Volume 10.8 fl (7.4-10.4); Monocytes Absolute Auto 0.6 K/mm3 (0.1-0.6); Monocytes Percent Auto 10.5 % (2.6-8.5); Neutrophils Absolute Auto 3.2 K/mm3 (1.3-6.7); Neutrophils Percent Auto 61.9 % (45.5-73.1); Platelet Count Result 229 k/mm3 (150-375); Red Cell Distribution Width 14.3 % (11.5-14.5); White Blood Count 5.2 K/mm3 (4.5-10.0)
[2022-03-05 11:37] LABS: Alanine Aminotransferase 38 U/L (6-35); Albumin Level 4.2 g/dL (3.5-5.1); Alkaline Phosphatase 154 U/L (38-126); Anion Gap 4 mmol/L (8-16); Aspartate Amino Transferase 42 U/L (14-36); Bilirubin,Total 0.7 mg/dL (0.2-1.3); Blood Urea Nitrogen 19 mg/dL (7-17); Calcium 9.8 mg/dL (8.4-10.2); Carbon Dioxide 36 mmol/L (22-30); Chloride 99 mmol/L (98-107); Estimated Glomerular Filt Rate > 60; Glucose 94 mg/dL (65-110); Potassium 3.9 mmol/L (3.4-5.0); Sodium 139 mmol/L (137-145)
[2022-03-08 06:19] LABS: CA 15-3 15 U/mL (<32)
== END 2022-03-05 10:16 | disposition home or self-care (01) ==
PROVIDERS: PCP Internal Medicine; Visit Provider Internal Medicine Hematology & Oncology
DX: C50.412 Malignant neoplasm of upper-outer quadrant of left female breast (principal); Z17.0 Estrogen receptor positive status [ER+]
CPT/HCPCS: 36415; 80053; 85025; 86300

== ENCOUNTER 2022-03-14 10:24 | Outpatient (CLI) | payer OTHER, SELFPAY ==
--- NOTE | ~2022-03-14 | CT_ITS ---
EXAMINATION: CT LE LT wo con DATE: 03/14/2022 10:56 INDICATION: Unilateral primary osteoarthritis of the left knee presenting with left knee pain and dif ficult mobility. TECHNIQUE: High resolution computed tomography (CT) of the left lower limb from the hip through the a nkle was performed without intravenous contrast. Additional sagittal and coronal reconstructions were performed. Automated exposure control and iterative reconstruction technique were employed. The dose -length product was 1560.34 mGy-cm. COMPARISON: Bilateral knee radiographs dated 09/29/2018 FINDINGS: Bone alignment is normal. No fracture. Tricompartmental osteoarthritis at the left knee moderate to s evere at the medial compartment with cortical irregularity of with mild subarticular cystlike changes at the medial tibial plateau and with shallow concavity to the articular cortex measuring 1.5 cm AP and 5 mm medial to lateral along the anterior weightbearing medial femoral condyle. Small marginal os teophytes and mild nonuniform joint space narrowing at the patellofemoral articulation with additiona l mild cortical irregularity and subarticular cystlike changes. Small marginal osteophytes at the lat eral compartment. Small left knee joint effusion. Mild subcutaneous edema about the ankle and extendi ng over the dorsum of the foot. Moderate osteoarthritis in the visualized inferior portion of the lef t sacroiliac joint. Minimal osteoarthritis at the left hip and several joints in the visualized left foot. Achilles tendinosis with moderate fusiform thickening and a few intrasubstance dystrophic calci fications. IMPRESSION: 1. Moderate to severe medial compartment predominant tricompartmental osteoarthritis at the left knee with small joint effusion. 2. Moderate Achilles tendinosis. Reviewed, dictated and finalized at location B. IMPRESSION: 1. Moderate to severe medial compartment predominant tricompartmental osteoarth ritis at the left knee with small joint effusion. 2. Moderate Achilles tendinosis.
== END 2022-03-14 10:25 | disposition home or self-care (01) ==
PROVIDERS: PCP Internal Medicine; Visit Provider Orthopaedic Surgery
DX: M17.12 Unilateral primary osteoarthritis, left knee (principal)
CPT/HCPCS: 73700

== ENCOUNTER 2022-03-15 10:50 | Outpatient (CLI) | payer OTHER, SELFPAY ==
--- NOTE | 2022-03-15 11:26 | ECG_ITS ---
Measurements Intervals Dawes Rate: 67 P: 14 ND: 126 QRS: 39 QRSD: 90 T: 13 QT: 401 QTc: 424 Interpretive Statements SINUS RHYTHM NONSPECIFIC T-WAVE ABNORMALITY COMPARED TO ECG 08/29/2021 09:10:10 NO SIGNIFICANT CHANGES Electronically Signed On 03-15-2022 17:17:30 CDT by Jonny Nash M.D.
[2022-03-15 11:31] LABS: Hematocrit 40.7 % (37.0-47.0); Hemoglobin 13.4 g/dL (12.0-15.0)
[2022-03-15 11:36] LABS: Albumin Level 4.1 g/dL (3.5-5.1); Glucose 101 mg/dL (65-110)
[2022-03-15 11:38] LABS: Urine Cotinine NEGATIVE
[2022-03-15 12:19] LABS: Hemoglobin A1C 5.5 % (<5.7)
== END 2022-03-15 10:51 | disposition home or self-care (01) ==
PROVIDERS: PCP Internal Medicine; Visit Provider Orthopaedic Surgery
DX: M17.12 Unilateral primary osteoarthritis, left knee (principal); E78.5 Hyperlipidemia, unspecified; R73.03 Prediabetes
CPT/HCPCS: 80307; 82040; 82947; 83036; 85014; 85018; 93005

== ENCOUNTER 2022-06-10 09:46 | Outpatient (CLI) | payer OTHER, SELFPAY ==
[2022-06-10 11:02] LABS: Basophils Absolute Auto 0.1 K/mm3 (0.0-0.1); Basophils Percent Auto 1.2 % (0.2-1.2); Eosinophils Absolute Auto 0.1 K/mm3 (0-0.3); Eosinophils Percent Auto 1.2 % (0-4.4); Hematocrit 41.6 % (37.0-47.0); Hemoglobin 13.6 g/dL (12.0-15.0); Immature Granulocyte Absolute 0.01 K/mm3 (0.00-0.031); Immature Granulocyte Percent A 0.2 % (0-0.5); Lymphocytes Absolute Auto 0.82 K/mm3 (0.9-3.2); Lymphocytes Percent Auto 13.9 % (18.3-44.2); Mean Corpuscular HGB Conc 32.7 g/dl (32-36); Mean Corpuscular Hemoglobin 29.6 pg (26-34); Mean Corpuscular Volume 90.4 fl (80-100); Mean Platelet Volume 10.4 fl (7.4-10.4); Monocytes Absolute Auto 0.6 K/mm3 (0.1-0.6); Monocytes Percent Auto 9.5 % (2.6-8.5); Neutrophils Absolute Auto 4.4 K/mm3 (1.3-6.7); Platelet Count Result 208 k/mm3 (150-375); Red Cell Distribution Width 15.1 % (11.5-14.5); White Blood Count 5.9 K/mm3 (4.5-10.0)
[2022-06-10 11:11] LABS: Urine Cotinine NEGATIVE
[2022-06-10 11:14] LABS: Albumin Level 4.2 g/dL (3.5-5.1)
[2022-06-10 11:16] LABS: Anion Gap 3 mmol/L (8-16); Blood Urea Nitrogen 21 mg/dL (7-17); Calcium 9.3 mg/dL (8.4-10.2); Carbon Dioxide 33 mmol/L (22-30); Chloride 100 mmol/L (98-107); Estimated Glomerular Filt Rate > 60; Glucose 86 mg/dL (65-110); Potassium 3.7 mmol/L (3.4-5.0); Sodium 136 mmol/L (137-145)
== END 2022-06-10 09:47 | disposition home or self-care (01) ==
LOC: ANHSURGERY 09:51
PROVIDERS: Anesthesiology; PCP Internal Medicine; Visit Provider Orthopaedic Surgery
DX: M17.12 Unilateral primary osteoarthritis, left knee (principal); I10 Essential (primary) hypertension; Z01.818 Encounter for other preprocedural examination
CPT/HCPCS: 36415; 80048; 80307; 82040; 85025; 87081

== ENCOUNTER 2022-07-09 00:11 | Day surgery (SDC) | payer OTHER, SELFPAY ==
[2022-06-10 09:56] VITALS: BMI 30.1
[2022-06-10 10:18] VITALS: BP 133/57; PULSE 68; RESP 18; TEMP 36.8; O2SAT 98
--- NOTE | 2022-06-10 10:20 | PC.NURSE ---
Report to the Outpatient Waiting Room, entrance under the green pavilion located off [facility], at time __0600 on date _07/09/22 . OR Time: . - You and your visitor will be asked to self-screen and do not enter if you have any COVID symptoms. - Only one visitor and NO children visitors are allowed at this time. - The patient visitor is requested to leave or wait in car when not with patient due to restrictions. - A mask is required within the hospital. Patients may have clear liquids (water, carbonated beverages, clear teas, apple juice) until 3 hours prior to surgery with a maximum of 20 ounces. - No food from midnight until time of surgery - Infants may have breast milk until 4 hours before surgery, infant formula 6 hours prior to surgery. - Children will be allowed to drink immediately following surgery. If applicable, please bring a bottle or sippy cup to assist with drinking. Juice, water, soda, and popsicles are readily available. For infants on formula, please bring formula the day of surgery. Pacifiers are allowed. Take the following medications with a SIP of water the morning of surgery: __NONE Medications to discontinue per physician _ASPIRIN , ADVIL AND ALL VITAMINS AND SUPPLEMENTS 7 DAYS PRE OP_PER DR OLIVIA Date to take last dose__07/01/22 Please no make-up, nail portuguese, hairspray, perfume, deodorant, or body powder the day of surgery. No jewelry (including any body piercings) or valuables the day of surgery, leave them at home. Please take a shower or bath the night before, or the morning of, surgery with an antibacterial soap. Wear comfortable, loose fitting clothing. Children are encouraged to wear pajamas. - Jewelry must be removed prior to entering the operating room. Rings and piercings that are not removed may be cut off. - The hospital will not accept responsibility for valuables. - Please leave all valuables, including medications, at home the day of surgery. If you are going home after surgery, a licensed substitute bus driver must drive you home. - NO public transportation without another adult. - We recommend that an adult stay with you for 24 hours following discharge. - We also recommend that you do not drive, make important decision, drink alcoholic beverages, or take any drugs that were not prescribed by your health care provider for at least 24 hours after your discharge time. For Pediatric surgeries, we recommend two adults accompany the child home (only one inside the building at this time). Follow any additional instructions given to you from your surgeon. If you or anyone in your household have experienced Covid symptoms in the past week, please notify your surgeon or the nurse liaison at the phone number below for possible testing. VERBAL AND WRITTEN instructions given to _PATIENT and asked if any additional questions and then verbalized understanding. Patient advised to call surgeon office or pre surgery nurse liaison [phone] if any additional questions.
[2022-07-09] VITALS (12 sets, daily range): BP systolic 111–135; BP diastolic 39–62; PULSE 66–94; RESP 10–18; TEMP 36.3–37.2; O2SAT 93–100
--- NOTE | ~2022-07-09 | XR_ITS ---
EXAMINATION: XR knee LT 2V DATE: 07/09/2022 10:24 INDICATION: Left knee arthroplasty. Postop. TECHNIQUE: 2 views of left knee were obtained. COMPARISON: Left knee radiographs 09/29/2018 FINDINGS: There is a total left knee arthroplasty with patellar resurfacing in near-anatomic alignmen t. No fracture. There is gas in the knee joint and soft tissues, consistent with recent surgery. IMPRESSION: 1. Total left knee arthroplasty in near-anatomic alignment. Reviewed, dictated and finalized at location A.
[2022-07-09] MEDS: TRANEXAMIC ACID 1,000MG/ISO100 1,000 MG/100 ML BAG 200 MG IVPB (07:00)
[2022-07-09] MEDS: ACETAMINOPHEN 500 MG TABLET 1000 MG PO (07:00)
[2022-07-09] MEDS: LACTATED RINGERS 1,000 ML 30 ML IV CONT ×2 (07:00→10:10)
--- NOTE | 2022-07-09 07:20 | WPDHPUPDATE1 ---
History and Physical Update Update Date/Time: 07/09/22 07:20 History and Physical has been reviewed, including an updated exam of the patient. There are NO changes in the patient's condition. Risks, benefits, and alternatives have been discussed and questions answered. Patient agrees to proceed with procedure.
--- NOTE | 2022-07-09 07:40 | WPDANESEPPF ---
Anes - Initial Pre Proc Eval Procedure: Operation Date: 07/09/22 07:30 Proposed Procedures p Left Custom Total Knee Arthroplasty - Keo Carey MD Date/Time: 07/09/22 07:40 Surgeon: Keo Carey MD Pre Op Diagnosis: primary oa left knee Patient Data Age: 76 Gender: F Height: 1.55 m Weight: 69.8 kg Last Vital Signs Temp 36.8 C 06/10/22 10:18 Pulse 68 06/10/22 10:18 Resp 18 06/10/22 10:18 BP 133/57 L 06/10/22 10:18 Pulse Ox 98 06/10/22 10:18 O2 Del Method Room Air 06/10/22 10:18 Allergies Allergy/AdvReac Type Severity Reaction Status Date / Time No Known Allergies Allergy Verified 07/09/22 06:31 Home Medications Medication Instructions Recorded Confirmed Type anastrozole 1 mg tablet 1 mg PO DAILY 08/06/19 06/10/22 History cinnamon bark 500 mg capsule 500 mg PO DAILY 08/06/19 06/10/22 History grape seed extract 50 mg capsule 300 mg PO DAILY 08/06/19 06/10/22 History niacin 500 mg tablet 2,000 mg PO DAILY 08/06/19 06/10/22 History elderberry fruit 460 mg-elderberry 1 cap PO DAILY 08/10/19 06/10/22 History flower 115 mg capsule omega-3 fatty acids-fish oil 360 4 cap PO DAILY 08/10/19 06/10/22 History mg-1,200 mg capsule folic acid 0.8 mg capsule 0.8 mg PO DAILY 07/10/20 06/10/22 History vit C,E,zinc,copper-ahhtv0z 250 1 cap PO DAILY 09/01/20 06/10/22 History mg-lutein 5 mg-zeaxanthin 1 mg capsule (Ocuvite Adult 50 Plus) calcium carbonate 600 mg-vitamin 1 tablet PO BID 03/27/21 06/10/22 History D3 20 mcg (800 unit) tablet (Caltrate with Vitamin D3) cholecalciferol (vitamin D3) 125 250 mcg PO DAILY 03/27/21 06/10/22 History mcg (5,000 unit) capsule ibuprofen 200 mg tablet (Advil) 400 mg PO Q6-8H PRN Pain 03/27/21 06/10/22 History turmeric 1,000 mg PO DAILY 03/27/21 06/10/22 History cyanocobalamin (vitamin B-12) 1,000 mcg PO DAILY 09/28/21 06/10/22 History 1,000 mcg tablet aspirin 81 mg tablet,delayed 81 mg PO ONCE 04/22/22 06/10/22 History release biotin 10,000 mcg PO DAILY 04/22/22 06/10/22 History atorvastatin 20 mg tablet See Rx Instructions .Route 06/10/22 06/10/22 Rx .COMPLEX #90 tabs bumetanide 1 mg tablet See Rx Instructions .Route 06/10/22 06/10/22 Rx .COMPLEX #90 tabs loratadine 10 mg tablet (Claritin) 10 mg PO DAILY 06/10/22 06/10/22 History potassium chloride 10 mEq See Rx Instructions .Route 06/25/22 Rx tablet,extended release .COMPLEX #90 tabs Laboratory Tests 07/09/22 06:46 Blood Type A Positive Antibody Screen Pending Patient hx anesthesia problems: none Family hx anesthesia problems: none Results Review: All pre-operative results and documents have been reviewed as part of the pre-operative evaluation. [facility] Past Medical History Medical History Abnormal finding of blood chemistry BMI 28.0-28.9,adult BMI 33.0-33.9,adult Cataracts, bilateral Cellulitis of abdominal wall Colon cancer screening DJD (degenerative joint disease) of knee Elevated homocysteine Elevated LFTs Encounter for Medicare annual wellness exam Encounter for routine adult health examination without abnormal findings Fracture of upper end of humerus, closed Hearing loss History of fatty infiltration of liver History of right shoulder fracture Hx of breast cancer Hyperlipidemia Ingrown right greater toenail Insufficiency fracture of tibia Kidney stones (05/13/12) kidney stone removal Malignant neoplasm of left female breast Obesity (BMI 30.0-34.9) On [facility] drug therapy Other nondisplaced dens fracture, initial encounter for closed fracture Pedal edema Pre-diabetes Right knee meniscal tear Shoulder fracture, right Tear of medial meniscus of left knee Tear of medial meniscus of right knee Vitamin D deficiency Surgical History Surgical History Delivery by section (10/13/75)
--- NOTE | 2022-07-09 07:42 | WPDANESPNB ---
Anes - Peripheral Nerve Block Date/Time: 07/09/22 07:42 I have discussed with the patient/family/POA the placement of a peripheral nerve block for post-operative pain management, including associated risks, benefits, complications, and side effects. Alternative methods of post-operative analgesia were detailed. Questions were solicited and answers provided to the satisfaction of the patient/family/POA. Time-Out: A pre-procedural Time-Out was completed immediately before starting the procedure and confirmed: Patient Identification, Site, Procedure, Patient Position and the Availability of Requisite Equipment. Clinical Indications: Acute post-operative pain management requested by the operative surgeon. Nerve Block Insertion Note Anes-nerve block: adductor canal Patient position: supine Skin prep: chlorhexidine Needle: 22 gauge, stimulating, insulated echogenic needle. Needle length: 80 mm Technique: ultrasound Technique comment: in plane Injectate: bupivacaine 0.5% with epi 5 mcg/ml (30cc) Observations: tolerated well Complications: none Procedure start time:: 740 Procedure end time:: 745
[2022-07-09] MEDS: ceFAZolin 2 GM/D5W 50 ML 2 GM/50 ML BAG IVPB ×2 (07:56→16:59)
[2022-07-09] MEDS: GENTAMICIN BONE CEMENT REFOBACIN 1 EACH TOPICAL (08:35)
--- NOTE | 2022-07-09 11:59 | ADMGEN ---
This patient, Ellie Ga, was admitted to Medical Room 252-. Patient/family oriented to hospital policies and general routines including ID bracelet, bed and alarms, visiting hours, pain management, procedures, bathroom and other care routines, personal items, smoking policy, room service/diet, and visiting hours. Information on how to activate the Rapid Response Team has been discussed. Patient/Family are encouraged to report perceived risks to care and to ask questions if they do not understand what they are told or what they should do.
[2022-07-09] MEDS: SODIUM CHLORIDE 0.9% IV 1,000 ML 125 ML IV CONT (12:42)
--- NOTE | 2022-07-09 13:42 | W.PM.PROC2 ---
Procedure Note - Detailed Date of Procedure 07/09/22 Pre-op Diagnosis primary oa left knee Post-op Diagnosis Same Procedure Performed Total knee arthroplasty, left. Surgeon Keo Carey MD Economic Development Coordinator Elisabeth Hardin PA-C Anesthesia General and Regional (Subsartorial block.) Findings Custom TKA. Fair bone quality, with degenerative cysts on the tibia. Filled with bone cement. Description of Procedure Preoperative antibiotics were given. The limb was prepped and draped in the usual sterile fashion with a well-padded tourniquet high on the thigh. The limb was exsanguinated and the tourniquet inflated to 300 mmHg. A longitudinal incision was created just medial to the patella. A trivector approach to the knee was performed. Arthrotomy was taken down through the joint capsule. No significant releases were initially taken. The femur was exposed and the F1 jig was applied. The coring tool was used to remove the cartilage for the F2 jig to sit flush with the bone. The jig was pinned and the distal cut carefully taken. Caliper measurements confirmed appropriate bony resections according to the preoperative templated plan. The F4 cutting jig for the femur was applied, at the standard rotation. The AP and anterior chamfer cuts were taken. The F5 jig was applied and the posterior chamfer cuts were taken. The tibia was prepared using the T1 jig, after removing cartilage for the jig contact points. Proper alignment was checked with the alignment last. The tibia was cut using the T1u guide. Gap balancing was performed. Gap measurements were taken and the knee was trialed. Excellent alignment and soft tissue balancing was confirmed. The posterior cruciate ligament was recessed along the proximal tibia. The patella was cut for resurfacing. Three lug holes were drilled. Meniscal remnants were removed. The trial components were assembled. Excellent range of motion and proper soft tissue balancing were confirmed throughout the full range of motion. Patellar tracking was excellent. The knee was copiously irrigated periodically throughout the procedure. The real implants were cemented into position. Excess cement was carefully removed. The wound was closed in layers with interrupted #1 Vicryl suture, 2-0 strata fix suture, 0 strata fix suture, 2-0 strata fix suture. Steri-Strips placed on the skin with the knee flexed. Sterile bulky dressing applied. The patient was brought to the recovery room in stable condition. There were no complications. Physician program services assistant, Elisabeth Hardin PA-C, required for surgery; including patient positioning, draping, tissue retraction, maintaining instrument position, cement removal, wound closure, and dressing placement. Implants Conformis Custom total knee arthroplasty. Cemented. Cruciate retaining. 7B insert. 29 mm round patella. Estimated Blood Loss -50.0 Urine Output 700 Drains No Complications No immediate complications Condition Stable Disposition PACU [facility] Billing Surgery - Charge Forward: Surgery Billing
[2022-07-09] MEDS: SENNA/DOCUSATE SODIUM TABLET 2 TAB PO (16:59)
[2022-07-09] MEDS: ASPIRIN 81 MG ENTERIC TABLET PO (16:59)
[2022-07-09] MEDS: MELOXICAM 7.5 MG TABLET PO (16:59)
[2022-07-09] MEDS: NIACIN SA 500 MG TABLET 2000 MG PO (20:08)
[2022-07-09] MEDS: FAMOTIDINE 20 MG TABLET PO (20:08)
[2022-07-10] MEDS: ceFAZolin 2 GM/D5W 50 ML 2 GM/50 ML BAG IVPB ×2 (00:12→08:59)
[2022-07-10 03:21] VITALS: BP 113/44; PULSE 71; RESP 18; TEMP 36.2; O2SAT 96
[2022-07-10] MEDS: oxyCODONE HCL (*CRX) 5 MG TAB IR PO (05:49)
[2022-07-10 07:28] VITALS: BP 105/45; PULSE 75; RESP 18; TEMP 36.6; O2SAT 96
[2022-07-10] MEDS: ASPIRIN 81 MG ENTERIC TABLET PO (08:59)
[2022-07-10] MEDS: ATORVASTATIN 20 MG TABLET PO (08:59)
[2022-07-10] MEDS: BUMETANIDE 1 MG TABLET PO (08:59)
[2022-07-10] MEDS: LORATADINE 10 MG TABLET PO (08:59)
[2022-07-10] MEDS: SENNA/DOCUSATE SODIUM TABLET 2 TAB PO (08:59)
[2022-07-10] MEDS: FAMOTIDINE 20 MG TABLET PO (08:59)
[2022-07-10] MEDS: predniSONE 5 MG TABLET PO (08:59)
[2022-07-10] MEDS: ANASTROZOLE (*CHEMO) 1 MG TABLET PO (08:59)
[2022-07-10] MEDS: MELOXICAM 7.5 MG TABLET PO (08:59)
[2022-07-10] MEDS: polyethylene glycoL 3350 17 GM POWD.PACK PO (09:00)
--- NOTE | 2022-07-10 09:03 | WPDANESPN ---
Anes - Prog Note Post-Op Date/Time: 07/10/22 09:03 Cardiovascular status: normal Respiratory status: normal Airway patency: baseline Mental status: baseline Post-Op hydration status: normal Vital Signs: Last Vital Signs Temp 97.8 F 07/10/22 07:28 Pulse 75 07/10/22 07:28 Resp 18 07/10/22 07:28 BP 105/45 L 07/10/22 07:28 Pulse Ox 96 07/10/22 07:28 O2 Del Method Room Air 07/09/22 13:48 O2 Flow Rate 10 07/09/22 10:25 Pain Score (VAS): 0/10 I/O: Intake & Output 07/09/22 07/10/22 07/10/22 23:59 07:59 15:59 Intake Total 1470 550 Output Total 700 Balance 770 550 Post-procedural complaints: none Patient Feedback: Patient satisfied with anesthetic care.
== END 2022-07-10 10:30 | disposition home or self-care (01) ==
LOC: ANHSURGERY 06:06 → ANH2MED 11:24
PROVIDERS: PCP Internal Medicine; Visit Provider Orthopaedic Surgery
PROC: (CPT 27447; principal; 2022-07-09 07:30)
DX: M17.12 Unilateral primary osteoarthritis, left knee (principal); G89.18 Other acute postprocedural pain; E78.5 Hyperlipidemia, unspecified; R73.03 Prediabetes; E55.9 Vitamin D deficiency, unspecified; Z85.3 Personal history of malignant neoplasm of breast; Z79.811 Long term (current) use of aromatase inhibitors; Z79.82 Long term (current) use of aspirin
CPT/HCPCS: 27447; 64447; 36415; 73560; 80048; 80307; 82040; 85025; 86850; 86900; 86901; 87081; 97110; 97116; 97161; 97165; 97530; 97535; A9270; C1713; C1776; J0131; J0171; J0690; J1100; J1885; J2250; J2270; J2405; J2704; J2795; J3010; J7030; J7120; J7512

== ENCOUNTER 2022-09-23 11:00 | Outpatient (CLI) | payer OTHER, SELFPAY ==
[2022-09-23 11:26] LABS: Basophils Absolute Auto 0.1 K/mm3 (0.0-0.1); Eosinophils Absolute Auto 0.2 K/mm3 (0-0.3); Eosinophils Percent Auto 4.5 % (0-4.4); Hematocrit 41.4 % (37.0-47.0); Hemoglobin 13.2 g/dL (12.0-15.0); Immature Granulocyte Absolute 0.01 K/mm3 (0.00-0.031); Immature Granulocyte Percent A 0.2 % (0-0.5); Lymphocytes Absolute Auto 0.62 K/mm3 (0.9-3.2); Lymphocytes Percent Auto 15.3 % (18.3-44.2); Mean Corpuscular HGB Conc 31.9 g/dl (32-36); Mean Corpuscular Hemoglobin 29.3 pg (26-34); Monocytes Absolute Auto 0.6 K/mm3 (0.1-0.6); Monocytes Percent Auto 13.6 % (2.6-8.5); Neutrophils Absolute Auto 2.6 K/mm3 (1.3-6.7); Neutrophils Percent Auto 64.4 % (45.5-73.1); Platelet Count Result 245 k/mm3 (150-375); Red Cell Distribution Width 13.9 % (11.5-14.5)
[2022-09-23 12:38] LABS: Alanine Aminotransferase 43 U/L (6-35); Albumin Level 4.2 g/dL (3.5-5.1); Alkaline Phosphatase 164 U/L (38-126); Anion Gap 5 mmol/L (8-16); Aspartate Amino Transferase 50 U/L (14-36); Bilirubin,Total 0.5 mg/dL (0.2-1.3); Blood Urea Nitrogen 15 mg/dL (7-17); Calcium 9.2 mg/dL (8.4-10.2); Carbon Dioxide 31 mmol/L (22-30); Chloride 101 mmol/L (98-107); Estimated Glomerular Filt Rate > 60; Glucose 88 mg/dL (65-110); Potassium 3.6 mmol/L (3.4-5.0); Sodium 137 mmol/L (137-145)
[2022-09-28 15:40] LABS: CA 15-3 18 U/mL (<32)
== END 2022-09-23 11:01 | disposition home or self-care (01) ==
LOC: ANHLAB 11:01
PROVIDERS: PCP Internal Medicine; Visit Provider Internal Medicine Hematology & Oncology
DX: C50.412 Malignant neoplasm of upper-outer quadrant of left female breast (principal); Z17.0 Estrogen receptor positive status [ER+]
CPT/HCPCS: 36415; 80053; 85025; 86300

== ENCOUNTER 2022-09-23 11:24 | Outpatient (CLI) | payer OTHER, SELFPAY ==
--- NOTE | ~2022-09-23 | MMUS_ITS ---
EXAMINATION: MM diagnostic olga LT w patty, US breast LT limited HISTORY: Follow-up left breast asymmetry/mass and calcifications. Previous left lumpectomy and radiat ion therapy. TECHNIQUE: Additional 3-D tomosynthesis images of left were performed and synthetic 2-D images were g enerated. CAD analysis was submitted and interpreted. High resolution Limited left breast ultrasound was performed. COMPARISON: Comparison to multiple prior studies sequentially, with oldest reviewed study dated 08/13. BREAST PARENCHYMAL COMPOSITION: Breast composed of scattered areas of fibroglandular density. FINDINGS: MAMMOGRAPHIC FINDINGS: Stable asymmetries in the area of previous left breast biopsy. There are stable benign-appearing diego st calcifications. No new masses, calcifications or architectural distortion are identified in the le ft breast. ULTRASOUND: Limited left breast ultrasound: At 5:00, 10 cm from the nipple there is a heterogeneous predominantly hypoechoic mass measuring 2 x 1.2 x 1.9 cm with mixed posterior attenuation and no internal vascular ity, likely representing fat necrosis. This area of abnormality has diminished in size compared with 02/19/2022 when it measured 3.1 x 1.3 x 1.6 cm. IMPRESSION: 1. Stable left breast mass with findings compatible with fat necrosis post lumpectomy and radiation t herapy. 2. Routine yearly screening mammogram and regular clinical breast examination are recommended. BI-RADS Category 2: Benign finding(s). Reviewed, dictated and finalized at location B. E TEACHER IMPRESSION: 1. Stable left breast mass with findings compatible with fat necrosis post lump ectomy and radiation therapy. 2. Routine yearly screening mammogram and regular clinical breast examination a re recommended. BI-RADS Category 2: Benign finding(s).
== END 2022-09-23 11:25 | disposition home or self-care (01) ==
LOC: ANHIMG 11:28
PROVIDERS: PCP Internal Medicine; Visit Provider Internal Medicine Hematology & Oncology
DX: C50.412 Malignant neoplasm of upper-outer quadrant of left female breast (principal); Z17.0 Estrogen receptor positive status [ER+]
CPT/HCPCS: 36415; 76642; 77061; 77065; 80053; 85025; 86300; G0279

== ENCOUNTER 2023-03-28 12:53 | Outpatient (CLI) | payer OTHER, SELFPAY ==
--- NOTE | ~2023-03-28 | MM_ITS ---
EXAMINATION: MM diagnostic olga BI w patty HISTORY: History of bilateral breast cancer; bilateral partial mastectomy, radiotherapy TECHNIQUE: ML, MLO and CC 3-D tomosynthesis images of were performed and synthetic 2-D images were ge nerated. Bilateral rotated lateral CC views. CAD analysis was submitted and interpreted. COMPARISON: 3diagnostic left mammogram and limited left breast ultrasound 02/19/2022 bilateral diagnostic mammography and limited left breast ultrasound 04/23/2021 diagnostic left mammogram, Limited left breast ultrasound 09/2020diagnostic bilateral mammogram, Limited left breast ultrasound 08/23/2019 bilateral diagnostic mammogram Breast parenchymal composition: There is heterogeneously dense breast tissue, which may obscure small masses. FINDINGS: Biopsy markers are noted on the right. Bilateral postoperative change from partial mastecto my is ectatic and noted in addition to surgical clips, right axillary area, consistent with axillary node dissection. There is chronic skin thickening of the right breast. Scattered bilateral benign calcifications are noted. No interval suspicious mass or new architectural distortion remaining malignant calcification or new skin thickening or retraction is detected. IMPRESSION: 1. Status post bilateral partial mastectomy and radiotherapy for breast cancer; no mammographic evide nce of malignancy is detected 2. Routine annual mammographic screening is recommended BI-RADS Category 2: Benign finding(s). Reviewed, dictated and finalized at location A. IMPRESSION: 1. Status post bilateral partial mastectomy and radiotherapy for breast cancer; no mammographic evidence of malignancy is detected 2. Routine annual mammographic screening is recommended BI-RADS Category 2: Benign finding(s).
--- NOTE | ~2023-03-28 | DEXA_ITS ---
Bone Density Report Name: CARMELA REYES Age: 77 Sex: Female Ethnicity: White Date of : 1945 Indication: postmenopausal; screening for osteoporosis; height loss; cancer; hysterectomy; Referring Provider: ANDIE GONZALEZ Study: Bone densitometry was performed. Exam Date: March 28, 2023 Accession number: [id number] Bone Density: Region BMD T-score Z-score Classification AP Spine(L1-L4) 0.998 -0.4 2.0 Normal Femoral Neck (Left) 0.670 -1.6 0.5 Osteopenia Total Hip (Left) 0.772 -1.4 0.5 Osteopenia Femoral Neck (Right) 0.713 -1.2 0.9 Osteopenia Total Hip (Right) 0.785 -1.3 0.6 Osteopenia Total Hip Mean 0.778 -1.4 0.6 Osteopenia World Health Organization criteria for BMD impression classify patients as: Normal (T-score at or above -1.0), Osteopenia (T-score between -1.0 and -2.5), or Osteoporosis (T-score at or below -2.5). 10-year Fracture Risk(1): Major Osteoporotic Fracture 12% Hip Fracture 2.6% Reported Risk Factors: [place] (), Neck BMD=0.670, BMI=29.9 (1) FRAX(R) Version 3.08. Fracture probability calculated for an untreated patient. Fracture probability may be lower if the patient has received treatment. Previous Exams: Region Exam Age BMD T-score BMD Change BMD Change Date g/cm2 vs Baseline vs Previous AP Spine (L1-L4) 03/28/2023 77 0.998 -0.4 -0.022 (-2.2%) -0.022 (-2.2%) 02/14/2020 74 1.020 -0.2 Total Hip(Left) 03/28/2023 77 0.772 -1.4 -0.136 (-15.0% -0.136 (-15.0% 02/14/2020 74 0.907 -0.3 Total Hip(Right) 03/28/2023 77 0.785 -1.3 -0.102 (-11.5% -0.102 (-11.5% 02/14/2020 74 0.887 -0.4 *Denotes significance at 95% confidence level, LSC for AP Spine = 0.022 g/cm2, LSC for Total Hip = 0.027 g/cm2 Clinical Information Provided by Patient: Has used the following medications: Calcium Has the following medical conditions: Cancer, Hysterectomy Patient maximum height was 63 Menopause Age: 52 No regular weight bearing exercise Onset of menses at age 14 Number of children 2 Impression: The patient has low bone mass, based on the Left Femoral Neck T-score. The patient has an estimated ten-year risk of hip fracture of 2.6% and an estimated ten-year risk of major fracture of 12%, based on the WHO FRAX algorithm. The BMD for the Total Hip(Left) decreased, changing by -15.0% since the last DXA exam. The BMD for the Total Hip(Right) decreased, changing by -11.5% since the last DXA exam.
== END 2023-03-28 12:54 | disposition home or self-care (01) ==
PROVIDERS: PCP Internal Medicine; Visit Provider Internal Medicine Hematology & Oncology
DX: C50.412 Malignant neoplasm of upper-outer quadrant of left female breast (principal); Z17.0 Estrogen receptor positive status [ER+]; M85.89 Other specified disorders of bone density and structure, multiple sites; M85.852 Other specified disorders of bone density and structure, left thigh; M85.851 Other specified disorders of bone density and structure, right thigh
CPT/HCPCS: 77062; 77066; 77080; G0279

== ENCOUNTER 2023-04-21 09:13 | Outpatient (CLI) | payer OTHER, SELFPAY ==
[2023-04-21 09:25] LABS: Basophils Absolute Auto 0.1 K/mm3 (0.0-0.1); Basophils Percent Auto 1.1 % (0.2-1.2); Eosinophils Absolute Auto 0.1 K/mm3 (0-0.3); Eosinophils Percent Auto 1.9 % (0-4.4); Hemoglobin 14.1 g/dL (12.0-15.0); Immature Granulocyte Absolute 0.01 K/mm3 (0.00-0.031); Immature Granulocyte Percent A 0.2 % (0-0.5); Lymphocytes Absolute Auto 0.83 K/mm3 (0.9-3.2); Lymphocytes Percent Auto 17.9 % (18.3-44.2); Mean Corpuscular HGB Conc 32.8 g/dl (32-36); Mean Corpuscular Hemoglobin 29.5 pg (26-34); Mean Platelet Volume 10.1 fl (7.4-10.4); Monocytes Absolute Auto 0.5 K/mm3 (0.1-0.6); Monocytes Percent Auto 10.3 % (2.6-8.5); Neutrophils Absolute Auto 3.2 K/mm3 (1.3-6.7); Neutrophils Percent Auto 68.6 % (45.5-73.1); Platelet Count Result 223 k/mm3 (150-375); Red Blood Count 4.78 M/mm3 (4.2-5.4); Red Cell Distribution Width 14.3 % (11.5-14.5); White Blood Count 4.6 K/mm3 (4.5-10.0)
[2023-04-21 13:23] LABS: Alanine Aminotransferase 51 U/L (6-35); Albumin Level 4.2 g/dL (3.5-5.1); Alkaline Phosphatase 160 U/L (38-126); Anion Gap 4 mmol/L (8-16); Aspartate Amino Transferase 42 U/L (14-36); Bilirubin,Total 0.8 mg/dL (0.2-1.3); Blood Urea Nitrogen 22 mg/dL (7-17); Calcium 9.2 mg/dL (8.4-10.2); Carbon Dioxide 30 mmol/L (22-30); Chloride 103 mmol/L (98-107); Estimated Glomerular Filt Rate > 60; Glucose 99 mg/dL (65-110); Potassium 3.6 mmol/L (3.4-5.0); Sodium 137 mmol/L (137-145)
[2023-04-25 06:25] LABS: CA 15-3 16 U/mL (<32)
== END 2023-04-21 09:14 | disposition home or self-care (01) ==
PROVIDERS: PCP Internal Medicine; Visit Provider Internal Medicine Hematology & Oncology
DX: C50.412 Malignant neoplasm of upper-outer quadrant of left female breast (principal); Z17.0 Estrogen receptor positive status [ER+]
CPT/HCPCS: 36415; 80053; 85025; 86300

== ENCOUNTER 2023-06-26 08:26 | Outpatient (CLI) | payer OTHER, SELFPAY ==
[2023-06-30 23:25] LABS: Mitochondrial (M2) Ab (IgG) <=20.0 U (<=20.0)
[2023-07-01 04:38] LABS: Alkaline Phosphatase 191 U/L (37-153); Macrohepatic Isoenzymes 0 % (<=0)
[2023-07-03 13:41] LABS: Anti Striated Muscle Antibody NEGATIVE (NEGATIVE)
== END 2023-06-26 08:27 | disposition home or self-care (01) ==
PROVIDERS: PCP Internal Medicine; Visit Provider Internal Medicine
DX: R74.8 Abnormal levels of other serum enzymes (principal)
CPT/HCPCS: 36415; 83520; 84075; 84080; 86255

== ENCOUNTER 2023-07-16 07:43 | Outpatient (CLI) | payer OTHER, SELFPAY ==
--- NOTE | ~2023-07-16 | US_ITS ---
Limited Abdominal Sonogram: Real-time sonographic imaging of the right upper quadrant was performed. Clinical History: Abnormal serum enzyme levels Findings: The liver appears normal with no evidence of mass lesion or bile duct dilatation. Main por ayana vein demonstrates normal direction of flow. The gallbladder is well distended, and appears normal with no evidence of gallstone or wall thickening. The common bile duct measures 4 mm. The visualize d pancreas, aorta, and IVC are unremarkable. Impression: No significant abnormality seen. Reviewed, dictated and finalized at location M. Impression: No significant abnormality seen.
== END 2023-07-16 07:44 | disposition home or self-care (01) ==
PROVIDERS: PCP Internal Medicine; Visit Provider Internal Medicine
DX: R74.8 Abnormal levels of other serum enzymes (principal)
CPT/HCPCS: 76705

== ENCOUNTER 2023-10-20 14:39 | Outpatient (CLI) | payer OTHER, SELFPAY ==
--- NOTE | ~2023-10-20 | XR_ITS ---
XR elbow RT 2V DATE: 10/20/2023 15:02 INDICATION: Posterior elbow swelling TECHNIQUE: AP and lateral views COMPARISON: None FINDINGS: There is mild posterior soft tissue swelling of the elbow, likely due to olecranon bursitis . No fracture, dislocation or joint effusion. No periosteal reaction or bone destruction. IMPRESSION: Mild posterior soft tissue swelling likely due to olecranon bursitis Reviewed, dictated and finalized at location B. NE ROLLING MACHINE JOB SETTER IMPRESSION: Mild posterior soft tissue swelling likely due to olecranon bursiti s
== END 2023-10-20 14:40 | disposition home or self-care (01) ==
LOC: ANHIMG 14:50
PROVIDERS: PCP Internal Medicine; Visit Provider Internal Medicine
DX: M25.421 Effusion, right elbow (principal); M79.89 Other specified soft tissue disorders
CPT/HCPCS: 73070

== ENCOUNTER 2023-10-28 08:08 | Outpatient (CLI) | payer OTHER, SELFPAY ==
[2023-10-28 09:33] LABS: Basophils Absolute Auto 0.1 K/mm3 (0.0-0.1); Basophils Percent Auto 1.3 % (0.2-1.2); Eosinophils Absolute Auto 0.3 K/mm3 (0-0.3); Eosinophils Percent Auto 4.8 % (0-4.4); Hematocrit 42.1 % (37.0-47.0); Hemoglobin 13.9 g/dL (12.0-15.0); Immature Granulocyte Absolute 0.01 K/mm3 (0.00-0.031); Immature Granulocyte Percent A 0.2 % (0-0.5); Lymphocytes Absolute Auto 1.06 K/mm3 (0.9-3.2); Lymphocytes Percent Auto 19.6 % (18.3-44.2); Mean Corpuscular Hemoglobin 29.7 pg (26-34); Mean Platelet Volume 10.7 fl (7.4-10.4); Monocytes Absolute Auto 0.6 K/mm3 (0.1-0.6); Monocytes Percent Auto 10.7 % (2.6-8.5); Neutrophils Absolute Auto 3.4 K/mm3 (1.3-6.7); Neutrophils Percent Auto 63.4 % (45.5-73.1); Platelet Count Result 236 k/mm3 (150-375); Red Blood Count 4.68 M/mm3 (4.2-5.4); Red Cell Distribution Width 14.3 % (11.5-14.5); White Blood Count 5.4 K/mm3 (4.5-10.0)
[2023-10-28 10:30] LABS: Alanine Aminotransferase 39 U/L (6-35); Albumin Level 3.7 g/dL (3.5-5.1); Alkaline Phosphatase 136 U/L (38-126); Anion Gap 8 mmol/L (8-16); Aspartate Amino Transferase 38 U/L (14-36); Bilirubin,Total 0.6 mg/dL (0.2-1.3); Blood Urea Nitrogen 25 mg/dL (7-17); Calcium 9.2 mg/dL (8.4-10.2); Carbon Dioxide 27 mmol/L (22-30); Chloride 106 mmol/L (98-107); Estimated Glomerular Filt Rate > 60; Glucose 98 mg/dL (65-110); Potassium 3.6 mmol/L (3.4-5.0); Sodium 141 mmol/L (137-145)
[2023-10-30 21:03] LABS: CA 15-3 17 U/mL (<32)
== END 2023-10-28 08:09 | disposition home or self-care (01) ==
LOC: ANHLAB 09:02
PROVIDERS: PCP Internal Medicine; Visit Provider Internal Medicine Hematology & Oncology
DX: C50.412 Malignant neoplasm of upper-outer quadrant of left female breast (principal); Z17.0 Estrogen receptor positive status [ER+]
CPT/HCPCS: 36415; 80053; 85025; 86300

== ENCOUNTER 2024-03-29 08:00 | Outpatient (CLI) | payer OTHER, SELFPAY | END 2024-03-29 08:01 | disposition home or self-care (01) | PROVIDERS: PCP Internal Medicine; Visit Provider Internal Medicine | DX: H90.3 Sensorineural hearing loss, bilateral (principal); Z46.1 Encounter for fitting and adjustment of hearing aid | CPT/HCPCS: 92557; 92567 ==

== ENCOUNTER 2024-04-20 08:03 | Outpatient (RCR) | payer OTHER, SELFPAY | END 2024-07-19 23:59 | disposition home or self-care (01) | LOC: ANHBWCAUD 08:03 | PROVIDERS: PCP Internal Medicine; Visit Provider Internal Medicine | DX: Z46.1 Encounter for fitting and adjustment of hearing aid (principal) | CPT/HCPCS: V5014 ==

== ENCOUNTER 2024-04-26 08:58 | Outpatient (CLI) | payer OTHER, SELFPAY ==
--- NOTE | ~2024-04-26 | MM_ITS ---
EXAMINATION: MM screening olga BI w patty HISTORY: Screening TECHNIQUE: Craniocaudal and mediolateral oblique 3-D tomosynthesis images were obtained and synthetic 2-D images were generated. CAD analysis was submitted and interpreted. COMPARISON: Comparison to multiple prior studies sequentially, with oldest reviewed study dated 10/2019. BREAST PARENCHYMAL COMPOSITION: Not dense: There are scattered areas of fibroglandular density. FINDINGS: There are stable benign-appearing breast calcifications. There is no evidence of suspicious mass, calcification, or architectural distortion to suggest malignancy in either breast. There has b een no suspicious interval change. IMPRESSION: 1. No mammographic evidence of malignancy. 2. Recommend routine screening mammography in one year. BI-RADS Category 2: Benign finding(s). Reviewed, dictated and finalized at location B.
== END 2024-04-26 08:59 | disposition home or self-care (01) ==
PROVIDERS: PCP Internal Medicine; Visit Provider Internal Medicine Hematology & Oncology
DX: Z12.31 Encounter for screening mammogram for malignant neoplasm of breast (principal)
CPT/HCPCS: 77063; 77067

== ENCOUNTER 2024-04-26 09:31 | Outpatient (CLI) | payer OTHER, SELFPAY ==
[2024-04-26 09:55] LABS: Basophils Absolute Auto 0.1 K/mm3 (0.0-0.1); Basophils Percent Auto 1.6 % (0.2-1.2); Eosinophils Absolute Auto 0.2 K/mm3 (0-0.3); Eosinophils Percent Auto 2.9 % (0-4.4); Hematocrit 43.8 % (37.0-47.0); Hemoglobin 14.3 g/dL (12.0-15.0); Immature Granulocyte Absolute 0.02 K/mm3 (0.00-0.031); Immature Granulocyte Percent A 0.4 % (0-0.5); Lymphocytes Absolute Auto 0.99 K/mm3 (0.9-3.2); Lymphocytes Percent Auto 17.7 % (18.3-44.2); Mean Corpuscular HGB Conc 32.6 g/dl (32-36); Mean Corpuscular Hemoglobin 29.5 pg (26-34); Mean Corpuscular Volume 90.5 fl (80-100); Mean Platelet Volume 10.5 fl (7.4-10.4); Monocytes Absolute Auto 0.6 K/mm3 (0.1-0.6); Neutrophils Absolute Auto 3.8 K/mm3 (1.3-6.7); Neutrophils Percent Auto 67.4 % (45.5-73.1); Platelet Count Result 238 k/mm3 (150-375); Red Blood Count 4.84 M/mm3 (4.2-5.4); Red Cell Distribution Width 14.6 % (11.5-14.5); White Blood Count 5.6 K/mm3 (4.5-10.0)
[2024-04-26 10:57] LABS: Alanine Aminotransferase 34 U/L (6-35); Albumin Level 4.4 g/dL (3.5-5.1); Alkaline Phosphatase 170 U/L (38-126); Anion Gap 10 mmol/L (4-12); Aspartate Amino Transferase 32 U/L (14-36); Bilirubin,Total 0.8 mg/dL (0.2-1.3); Blood Urea Nitrogen 16 mg/dL (7-17); Calcium 9.3 mg/dL (8.4-10.2); Carbon Dioxide 28 mmol/L (22-30); Chloride 103 mmol/L (98-107); Estimated Glomerular Filt Rate > 60; Glucose 104 mg/dL (65-110); Potassium 3.6 mmol/L (3.4-5.0); Sodium 141 mmol/L (137-145)
[2024-04-29 07:19] LABS: CA 15-3 19 U/mL (<32)
== END 2024-04-26 09:32 | disposition home or self-care (01) ==
PROVIDERS: PCP Internal Medicine; Visit Provider Internal Medicine Hematology & Oncology
DX: C50.412 Malignant neoplasm of upper-outer quadrant of left female breast (principal); Z17.0 Estrogen receptor positive status [ER+]
CPT/HCPCS: 36415; 80053; 85025; 86300

== ENCOUNTER 2024-10-27 08:06 | Outpatient (CLI) | payer OTHER, SELFPAY ==
[2024-10-27 08:28] LABS: Basophils Absolute Auto 0.1 K/mm3 (0.0-0.1); Basophils Percent Auto 1.4 % (0.2-1.2); Eosinophils Absolute Auto 0.3 K/mm3 (0-0.3); Eosinophils Percent Auto 5.2 % (0-4.4); Hematocrit 42.2 % (37.0-47.0); Hemoglobin 13.8 g/dL (12.0-15.0); Immature Granulocyte Absolute 0.02 K/mm3 (0.00-0.031); Immature Granulocyte Percent A 0.4 % (0-0.5); Lymphocytes Absolute Auto 1.21 K/mm3 (0.9-3.2); Lymphocytes Percent Auto 21.5 % (18.3-44.2); Mean Corpuscular HGB Conc 32.7 g/dl (32-36); Mean Corpuscular Hemoglobin 29.7 pg (26-34); Mean Corpuscular Volume 90.9 fl (80-100); Mean Platelet Volume 10.2 fl (7.4-10.4); Monocytes Absolute Auto 0.5 K/mm3 (0.1-0.6); Monocytes Percent Auto 9.6 % (2.6-8.5); Neutrophils Absolute Auto 3.5 K/mm3 (1.3-6.7); Neutrophils Percent Auto 61.9 % (45.5-73.1); Platelet Count Result 279 k/mm3 (150-375); Red Blood Count 4.64 M/mm3 (4.2-5.4); Red Cell Distribution Width 14.2 % (11.5-14.5); White Blood Count 5.6 K/mm3 (4.5-10.0)
[2024-10-27 09:43] LABS: Alanine Aminotransferase 45 U/L (6-35); Albumin Level 3.9 g/dL (3.5-5.1); Alkaline Phosphatase 137 U/L (38-126); Anion Gap 9 mmol/L (4-12); Aspartate Amino Transferase 40 U/L (14-36); Bilirubin,Total 0.9 mg/dL (0.2-1.3); Blood Urea Nitrogen 19 mg/dL (7-17); Calcium 9.1 mg/dL (8.4-10.2); Carbon Dioxide 27 mmol/L (22-30); Chloride 104 mmol/L (98-107); Estimated Glomerular Filt Rate > 60; Glucose 90 mg/dL (65-110); Potassium 3.3 mmol/L (3.4-5.0); Sodium 140 mmol/L (137-145)
[2024-10-29 07:19] LABS: CA 15-3 18 U/mL (<32)
== END 2024-10-27 08:07 | disposition home or self-care (01) ==
LOC: ANHLAB 08:12
PROVIDERS: PCP Internal Medicine; Visit Provider Internal Medicine Hematology & Oncology
DX: C50.412 Malignant neoplasm of upper-outer quadrant of left female breast (principal); Z17.0 Estrogen receptor positive status [ER+]
CPT/HCPCS: 36415; 80053; 85025; 86300

== ENCOUNTER 2024-12-21 11:37 | Outpatient (CLI) | payer OTHER, SELFPAY ==
--- NOTE | ~2024-12-21 | XR_ITS ---
XR ribs LT 2V w CXR 2V Ordering provider: Maldonado Brenner MD History: . R07.81 - Pleurodynia, FALL ON FRIDAY, LOWER RIB PAIN . Comparison: None. FINDINGS: BONES: No acute rib fracture. MEDIASTINUM: The cardiac silhouette is not enlarged. LUNGS: No infiltrates, effusions or pneumothorax. OTHER: No free air under the diaphragm. Levoscoliosis seen in the lumbar area. Degenerative spine. IMPRESSION: 1. No acute osseous abnormality left ribs and chest. 2. No acute cardiopulmonary findings. Reviewed, dictated and finalized at location A.
--- OUTSIDE RECORDS SUMMARY | 2024-12-21 13:27 | XMS_ITS | Encounter Summary ---
Author Organization [facility] Address [address] [place] [address] Care Team Providers Care Horse Riding Coach Or Instructor Name Role Phone Maldonado Brenner MD Primary Care Provider + Encounter Details Date Type Department Care Team (Late st Contact Info) Description 12/18/2024 External Device Data [facility] ABSTRACTION Provider, Abstract NO ADDRESS ON FILE Social History Tobacco Use Types Packs/Day Years Used Date Smoking Tobacco: Never Smokeless Tobacco: Never Alcohol Use Standard Drinks/Week Comments Yes 0 (1 standard drink = 0.6 oz pur e alcohol) Comments No Sex and Gender Information Value Date Recorded Sex Assigned at Not on file Legal Sex Female 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 Gender Identity Not on file Sexual Orientation Not on file documented as of this encounter Plan of Treatment Upcoming Encounters Date Type Department Care Team (Late st Contact Info) Description 08/03/2025 2:45 PM CDT Office Visit [facility] Oncology and Hematology - [place] [address] [facility] [address] [place] [address] Joce Clancy MD [address] [facility] [address] [place] [address] documented as of this encounter Visit Diagnoses Not on filedocumented in this encounter Care Teams Horse Riding Coach Or Instructor Relationship Specialty Start Date End Date Maldonado Brenner MD [address] [place] [phone] PCP - General Internal Medicine 09/29/18 documented as of this encounter
--- OUTSIDE RECORDS SUMMARY | 2024-12-21 13:27 | XMS_ITS | Encounter Summary ---
Author Organization [facility] Address [address] [place] [address] Care Team Providers Care Inspector And Adjuster Golf Club Head Name Role Phone Maldonado Brenner MD Primary Care Provider + Encounter Details Date Type Department Care Team (Late Contact Info) Description 12/29/2018 Chart Note [facility] Radiation Therapy [address] [place] [address] [place] [address] [place] [address] Social History Tobacco Use Types Packs/Day Years Used Date Smoking Tobacco: Never Smokeless Tobacco: Never Alcohol Use Standard Drinks/Week Comments Yes 0 (1 standard drink = 0.6 oz pur e alcohol) Comments No Sex and Gender Information Value Date Recorded Sex Assigned at Not on file Legal 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 [address] [place] [address] documented as of this encounter Visit Diagnoses Not on filedocumented in this encounter Care Teams Inspector And Adjuster Golf Club Head Relationship Specialty Start Date End Date Maldonado Brenner MD [address] [place] [address] PCP - General Internal Medicine 09/29/18 documented as of this encounter
--- OUTSIDE RECORDS SUMMARY | 2024-12-21 13:27 | XMS_ITS | Clinical Summary ---
Author Organization [facility] Address [address] [place] [id number] Care Team Providers Care High Pressure Boiler Operator Name Role Phone Maldonado Brenner MD Primary Care Provider Social History Tobacco Use Types Packs/Day Years Used Date Smoking Tobacco: Never Assessed Comments Unknown Sex and Gender Information Value Date Recorded Sex Assigned at Not on file Legal Sex Female 11:50 AM PEOPLESOFT FUNCTIONAL ANALYST Gender Identity Not on file Sexual Orientation Not on file Plan of Treatment Health Maintenance Due Date Last Done Comments Hepatitis C 1963 DTaP, Tdap and Td Vaccines ( 1 - Tdap) 1965 Zoster Vaccines (1 of 2) 1996 Dexa Scan (General) 2011 Pneumococcal Vaccine: 65+ Ye ars (2 of 2 - PPSV23 or PCV20) 09/02/2019 09/02/2018 RSV Immunization or 60+ Years (1 - 1-dose 75+ series) 2021 COVID-19 Vaccine ( - 2023-2 5 season) 2024 Influenza Adult (#1) 2024 09/02/2018 Meningococcal B Vaccine Aged Out No l onger eligible based on patient's age to complete this topic Meningococcal Vaccine Aged Out No dami mu eligible based on patient's age to complete this topic RSV Immunizations Under 20 Months Aged Out No longer eligible based on patient's age to complete this topic Insurance [facility] Care Teams High Pressure Boiler Operator Relationship Specialty Start Date End Date Maldonado Brenner MD [address] [place] [address] PCP - General INTERNAL MEDICINE 09/06/20
--- OUTSIDE RECORDS SUMMARY | 2024-12-21 13:27 | XMS_ITS | Patient Health Summary ---
Author Organization [facility] Address [address] [place] [address] Care Team Providers Care Saw Tailer Name Role Phone Maldonado Brenner MD Primary Care Provider [phone] Note from [facility],non-owned Affiliates and Associated Physician Practices is amultiple site organization consisting of ambulatory clinics and hospital sitesin [place], [place], [place] and [place]. This disclosure is being madepursuant to the Care Everywhere program and may not contain all information available regarding this patient. Last updated 18.[facility] Social History Tobacco Use Types Packs/Day Years Used Date Smoking Tobacco: Never Assessed Sex and Gender Information Value Date Recorded Sex Assigned at Not on file Gender Identity Not on file Sexual Orientation Not on file Procedures * MRI BREAST BILAT WWO CONTRAST(Performed 11/09/2018) Performed for Malignant neoplasm of female breast, unspecified estrogen receptor status, unspecified laterality, unspecified site of breast (HCC) * CREATININE BLOOD - POCT (IP) [facility](Performed 11/09/2018) Performed for Malignant neoplasm of female breast, unspecified estrogen receptor status, unspecified laterality, unspecified site of breast (HCC) Results * (ABNORMAL) MRI BREAST BILAT WWO CONTRAST (11/09/2018 8:02 PM CATALYST OPERATOR CHIEF) Anatomical Region Laterality Modality Breast Bilateral Magnetic Resonan ce 11/11/2018 2:53 PM CATALYST OPERATOR CHIEF Impressions 11/11/2018 4:31 PM CATALYST OPERATOR CHIEF IMPRESSION: Right breast: Posttreatment changes without evidence of malignancy. Left breast: -Irregular mass in the 4:00 position with adjacent small enhancing foci representing the patient's biopsy-proven breast cancer with adjacent suspicious foci of disease. -Suspicious mass in the 2:00 position at the site of known biopsy without mammographic correlate to a spiculated mass at this location. It is unclear if this represents postbiopsy change, so clinical correlation and possibly ultrasound follow-up is recommended. -Subareolar nonmass enhancement at 6:00 is favored to represent postbiopsy changes without obvious residual disease (per report, this site revealed atypia). ASSESSMENT: BI-RADS category 6: Known biopsy-proven cancer. RECOMMENDATION: Medical and/or surgical treatment per the patient's breast surgeon. I, Dr. SUPA MARADIAGA M.D. have personally reviewed and interpreted this examination/study. This report was electronically signed by SUPA MARADIAGA M.D. on 11/11/2018 4:31 PM . Narrative 11/11/2018 4:31 PM CATALYST OPERATOR CHIEF BILATERAL BREAST MRI HISTORY: 73-year-old female with history of right breast cancer status post lumpectomy in 1996. 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 MR performed for extent of disease. COMPARISON: Comparison was made to previous mammograms and breast ultrasound from 09/15/2018, 09/24/2018, 10/07/2018, and 10/22/2018. TECHNIQUE: Multiplanar multisequence MR imaging of both breasts before and following the administration of 9 cc of Gadavist. Dynamic phase imaging was performed in the axial plane. Exam was processed by and interpreted on a [employer] food server including 3-D volume rendering, subtraction image processing and contrast kinetic analysis. FINDINGS: Background tissue pattern: Scattered fibroglandular tissue. Degree of background parenchymal enhancement: Mild on the right and minimal on the left. RIGHT BREAST: Posttreatment changes are present in the right breast. Susceptibility artifact is present in the upper-outer and upper anterior right breast as well as the axilla from prior biopsy and surgical clips. There is no suspicious mass or area of abnormal enhancement in the right breast. There is no abnormality of the right axilla, chest wall, or nipple areolar complex. LEFT BREAST: At 2:00 in the left breast at middle depth, there is a 1.3 cm irregular enhancing mass with spiculated margins containing a biopsy clip and adjacent hematoma (image 68 series 7). Per report, this was found to be benign lymphoid tissue and there is no obvious mammogram correlate to a spiculated mass at this location. At 4:00 in the left breast at middle depth, a 1.1 cm irregular enhancing mass without a circumscribed margin is identified (image 103 series 7). Just anterosuperior to this mass, there is a suspicious 0.3 cm focus of enhancement in the lower outer left breast (image 99 series 7). Anteroinferior to this mass in the lower-outer quadrant, there is another suspicious 0.2 cm focus of enhancement (image 106 series 7). Both of these small enhancing foci are less than 0.5 cm from the known malignancy. In the subareolar left breast at 6:00, 3 cm from the nipple, there is mild nonmass enhancement and T2 hyperintensity likely representing postbiopsy changes (image 113 series 7). A small hematoma is identified along the superior medial aspect of the mass in the lower outer quadrant with associated hyperemia. A few oval circumscribed enhancing masses with T2 hyperintensity are identified measuring up to 0.6 cm in the upper left breast at middle depth (image 58 series 7) which represent benign intramammary lymph nodes. There is no abnormality of the left axilla, chest wall, or nipple areolar complex. Extramammary findings: Linear appearing opacities within both lungs are likely dependent atelectasis, but may also represent radiation fibrosis from prior treatment of right breast cancer. Yulia Mcknight DO MR ORDERABLES * CREATININE BLOOD - POCT (IP) [facility] (11/09/2018 7:03 PM CATALYST OPERATOR CHIEF) Creatinine POCT 0.92 0.3 - 1.3 mg/dL [facility] POCT TESTING eGFR POCT 60 60 ml/min [facility] POCT TESTING Blood BLOOD SPECIMEN / Unknown 11/09/2018 7:03 PM CATALYST OPERATOR CHIEF Yulia Mcknight DO LAB - POINT OF CARE ORDERABLES [facility] POCT TESTING [address] [phone] Care Teams Saw Tailer Relationship Specialty Start Date End Date Kopjas, Maldonado C, MD [address] [place] [address] PCP - General 10/26/18
--- OUTSIDE RECORDS SUMMARY | 2024-12-21 13:27 | XMS_ITS | Referral Summary ---
Author Organization [facility] Address [address] [place] [address] Care Team Providers Care Certified Orthoptist Name Role Phone Maldonado Brenner MD Primary Care Provider [phone] Source Comments [facility],non-[facility] Affiliates and Associated Physician Practices is amultiple site organization consisting of ambulatory clinics and hospital sitesin [place], [place], [place] and [place]. This disclosure is being madepursuant to the Care Everywhere program and may not contain all information available regarding this patient. Last updated 18.[facility] Social History Tobacco Use Types Packs/Day Years Used Date Smoking Tobacco: Never Assessed Sex and Gender Information Value Date Recorded Sex Assigned at Not on file Gender Identity Not on file Sexual Orientation Not on file Plan of Treatment Not on file Care Teams Certified Orthoptist Relationship Specialty Start Date End Date Maldonado Brenner MD [address] [place] [address] PCP - General 10/26/18
--- OUTSIDE RECORDS SUMMARY | 2024-12-21 13:27 | XMS_ITS | Clinical Summary ---
Author Organization [facility] Address [address] [place] [address] Care Team Providers Care Capper Machine Operator Name Role Phone Maldonado Brenner MD Primary Care Provider + Allergies No known active allergies Medications atorvastatin (LIPITOR) 20 mg tablet TK 1 T PO QD 5 8 Active bumetanide (BUMEX) 1 mg tablet TK 1 T PO QD 2 8 Active potassium chloride (KLOR-CON) 10 mEq Extended Release tablet TK 1 T PO QD WF 0 8 Active Cinnamon Bark (CINNAMON) 500 mg Capsule Take by mouth daily. Active ibuprofen (ADVIL) 200 mg tablet Take 200 mg by mouth every 6 hours as needed for Pain, Mild. Active Fish Oil-Stanford-3 Fatty Acids (FISH OIL) 360-1,200 mg Capsule Take 1 Capsule by mouth daily. Active niacin (NIACOR) 500 mg tablet Take 2,000 mg by mouth daily. Active C,E,zinc,coppe r 11/avvgw2u/lut (OCUVITE ADULT 50 PLUS ORAL) Take 50 mg by mouth daily. Active calcium-vitami n D3 (CALTRATE 600+D) 600 mg(1,500mg) -200 unit Tablet Take 1 Tablet by mouth daily. Active OTHERIndicatio ns:pt tkaing supplement black elderberry Provider please include Medication name, dose, route and frequency . Active Grape Seed Extract 25 mg Capsule Take by mouth. Activ e turmeric 400 mg Capsule Take by mouth. Acti ve betamethasone valerate (VALISONE) 0.1 % Cream betamethasone valerate 0.1 % topical cream Active triamcinolone acetonide (KENALOG) 0.1 % Cream triamcinolone acetonide 0.1 % topical cream Active aspirin (ECOTRIN EC) 81 mg Tablet, Delayed Release (E.C.) every 24 hours. Active anastrozole (ARIMIDEX) 1 mg tabletIndicati ons:Malignant neoplasm of upper-outer quadrant of left breast in female, estrogen receptor positive (CMS/HCC) TAKE 1 TABLET(1 MG) BY MOUTH DAILY 90 Tablet 4 4 Active Active Problems Problem Noted Date Diagnosed Date Family history of breast cancer 12/24/2018 Malignant neoplasm of upper- outer quadrant of left breast in female, estrogen receptor positive 11/20/2018 History of partial mastectomy of right breast History of cancer of right breast 09/29/2018 History of external beam radiation therapy 09/29 Resolved Problems Problem Noted Date Diagnosed Date Resolved Date Atypical lobular hyperplasia (ALH) of left breast 10/15/2018 12/24/2018 Abnormal mammogram of both breasts 09/29/2018 11/20/2018 Abnormal ultrasound of breast 09/29/2018 11/20/2018 Encounters Date Type Department Care Team Description 12/18/2024 External Device Data ST[facility] ABSTRACTION Provider, Abstract 12/17/2024 External Device Data [facility] ABSTRACTION Provider, Abstract 12/01/2024 External Device Data [facility] ABSTRACTION Provider, Abstract 11/09/2024 External Device Data [facility] ABSTRACTION Provider, Abstract 11/03/2024 3:30 PM PAYMENT REP Office Visit [facility]3] Oncology and Hematology [facility] [address] [place] [address] Joce Clancy MD Malignant neoplasm of upper-outer quadrant of left breast in female, estrogen receptor positive (CMS/HCC) (Primary Dx); Breast cancer screening by mammogram 10/29/2024 Orders Only [facility]3] Oncology and Hematology [place] [address] [place] [address] Joce Clancy MD 10/27/2024 Orders Only [facility]3] Oncology and Hematology [place] [address] [place] [address] Joce Clancy MD from Last 3 Months Family History Medical History Relation Name Comments Healthy Mother Arthritis-osteo Sister Healthy Sister Relation Name Status Comments Father Mother Alive Sister Alive Social History Tobacco Use Types Packs/Day Years Used Date Smoking Tobacco: Never Smokeless Tobacco: Never Alcohol Use Standard Drinks/Week Comments Yes 0 (1 standard drink = 0.6 oz pur e alcohol) Comments No Sex and Gender Information Value Date Recorded Sex Assigned at Not on file Legal Sex Female 5:13 AM PAYMENT REP Gender Identity Not on file Sexual Orientation Not on file Last Filed Vital Signs Vital Sign Reading Time Taken Comments Blood Pressure 117/65 11/03/2024 3:13 PM PAYMENT REP Pulse 75 11/03/2024 3:13 PM PAYMENT REP Temperature 36.3 C (97.3 F) 11/03/2024 3:13 PM PAYMENT REP Respiratory Rate 15 11/03/2024 3:13 PM PAYMENT REP Oxygen Saturation 98% 11/03/2024 3:13 PM PAYMENT REP Inhaled Oxygen Concentration - - Weight 73.6 kg (162 lb 3.2 oz) 11/03/2024 3:13 P M PAYMENT REP Height 157.5 cm (5' 2 ) 03/12/2022 2:56 PM CDT Body Mass Index 29.67 03/12/2022 2:56 PM CDT Plan of Treatment Upcoming Encounters Date Type Department Care Team (Late st Contact Info) Description 08/03/2025 2:45 PM CDT Office Visit [facility]3] Oncology and Hematology - [place] [address] [facility] [address] [place] [address] Joce Clancy MD [address] [place] [address] Health Maintenance Due Date Last Done Comments DTAP/TDAP/TD VACCINES (1 - Tdap) 1964 PNEUMOCOCCAL VACCINE 50+ YEARS (1 of 1 - PCV) 09/05/19 96 ZOSTER VACCINE (1 of 2) 1996 RSV VACCINE (60+ or ) (1 - 1-dose 75+ series) 2021 INFLUENZA VACCINE (#1) 2024 Preventative Visit- Commercial 10/13/2024 OSTEOPOROSIS SCREENING Completed 02/14/2020 Procedures Procedure Name Priority Date/Time Associated Diagnosis Comments CANCER ANTIGEN 15-3 Routine 10/29/2024 2 :20 PM PAYMENT REP COMPREHENSIVE METABOLIC PANEL Routine 10/27/2024 12:55 PM PAYMENT REP CBC WITH DIFFERENTIAL Routine 10/27/2024 12:51 PM PAYMENT REP XR DEXA BONE DENSITY AXIAL 1 OR MORE SITES Routine 02/14/2020 Osteopenia of multiple sites from Last 3 Months or Most Recently Relevant to Health Maintenance Results * CANCER ANTIGEN 15-3 (10/29/2024 2:20 PM PAYMENT REP) Blood us Joce Clancy MD CHEMISTRY ORDERABLES Final Resu lt * COMPREHENSIVE METABOLIC PANEL (10/27/2024 12:55 PM PAYMENT REP) Blood us Joce Clancy MD CHEMISTRY ORDERABLES Final Resu lt * CBC WITH DIFFERENTIAL (10/27/2024 12:51 PM PAYMENT REP) Blood us Joce Clancy MD HEMATOLOGY ORDERABLES Final Res ult * XR DEXA BONE DENSITY AXIAL 1 OR MORE SITES (02/14/2020) Anatomical Region Laterality Modality Other us Joce Clancy MD DIAGNOSTIC IMAGING ORDERABLES F inal Result from Last 3 Months or Most Recently Relevant to Health Maintenance Insurance [employer] SIGNATURE ADMIN CON[facility]IATE HEALTH MEDICARE PART A HOSPITAL ONLY A[facility]NA [facility] ONLY Care Teams Capper Machine Operator Relationship Specialty Start Date End Date Maldonado Brenner MD [address] [place] [address] PCP - General Internal Medicine 09/29/18
--- OUTSIDE RECORDS SUMMARY | 2024-12-21 13:27 | XMS_ITS | Clinical Summary ---
Author Organization [facility] Address [address] [place] [address] Care Team Providers Care Calendering Supervisor Name Role Phone Maldonado Brenner MD Primary Care Provider [phone] Source Comments [facility],non-owned Affiliates and Associated Physician Practices is amultiple site organization consisting of ambulatory clinics and hospital sitesin [place], [place], [place] and [place]. This disclosure is being madepursuant to the Care Everywhere program and may not contain all information available regarding this patient. Last updated 18.[facility] Social History Tobacco Use Types Packs/Day Years Used Date Smoking Tobacco: Never Assessed Sex and Gender Information Value Date Recorded Sex Assigned at Not on file Gender Identity Not on file Sexual Orientation Not on file Plan of Treatment Health Maintenance Due Date Last Done Comments BONE DENSITY TESTING 1945 HEPATITIS C SCREENING 08/31/1964 DTAP/TDAP/TD VACCINES (1 - Tdap) 1965 PNEUMOCOCCAL VACCINE 50+ (1 of 1 - PCV) 1996 ZOSTER VACCINE (1 of 2) 1996 Respiratory Syncytial Virus (RSV) Vaccine Pt: or over 60 yrs (1 - 1-dose 75+ series) 2021 COVID-19 VACCINE ( - 2023-2 5 season) 2024 INFLUENZA VACCINE (#1) 2024 DEPRESSION SCREENING 10/13/2024 HEPATITIS B VACCINE Aged Out No longe r eligible based on patient's age to complete this topic HIB VACCINE Aged Out No longer eligi ble based on patient's age to complete this topic HPV VACCINE Aged Out No longer eligi ble based on patient's age to complete this topic MENINGOCOCCAL (Group B) VACCINE Aged Out No longer eligible based on patient's age to complete this topic MENINGOCOCCAL VACCINE Aged Out No dami mu eligible based on patient's age to complete this topic Care Teams Calendering Supervisor Relationship Specialty Start Date End Date Maldonado Brenner MD [address] [place] [address] PCP - General 10/26/18
--- OUTSIDE RECORDS SUMMARY | 2024-12-21 13:27 | XMS_ITS | Encounter Summary ---
Author Organization [facility] Address [address] Attn: Epic Prelude ADT [place] [address] Care Team Providers Care Manager In Home Name Role Phone Maldonado Brenner MD Primary Care Provider + Encounter Details Date Type Department Care Team (Late st Contact Info) Description 02/15/1995 Outpatient Historical Conversion, History Social History Tobacco Use Types Packs/Day Years Used Date Smoking Tobacco: Never Assessed Comments Unknown Sex and Gender Information Value Date Recorded Sex Assigned at Not on file Legal Sex Female 5:13 AM HOME RESTORATION SERVICE SUPERVISOR Gender Identity Not on file Sexual Orientation Not on file documented as of this encounter Plan of Treatment Upcoming Encounters Date Type Department Care Team (Late st Contact Info) Description 08/03/2025 2:45 PM CDT Office Visit [facility] Oncology and Hematology - [place] [address] [facility] [address] [place] [address] Joce Clancy MD [address] [place] [address] documented as of this encounter Visit Diagnoses Not on filedocumented in this encounter Care Teams Manager In Home Relationship Specialty Start Date End Date Maldonado Brenner MD [address] [place] [address] PCP - General Internal Medicine 09/29/18 documented as of this encounter
== END 2024-12-21 11:38 | disposition home or self-care (01) ==
LOC: ANHIMG 11:51
PROVIDERS: PCP Internal Medicine; Visit Provider Internal Medicine
DX: R07.81 Pleurodynia (principal); T14.90XA Injury, unspecified, initial encounter
CPT/HCPCS: 71046; 71100

== ENCOUNTER 2025-05-03 09:16 | Outpatient (CLI) | payer OTHER, SELFPAY ==
--- NOTE | ~2025-05-03 | MM_ITS ---
EXAMINATION: screening [facility] BI w patty INDICATION: Asymptomatic, referred for screening mammogram. History of bilateral lumpectomy with radi ation therapy . COMPARISON: 04/26/2024 through 08/23/2019 TECHNIQUE: Full field digital CC, MLO views were obtained of Both breasts with computer-aided detecti on to assist in interpretation of the study. FINDINGS: There are scattered areas of fibroglandular density. Posttreatment changes in Both breasts are stable. No new focal dominant mass, architectural distortion, or suspicious microcalcifications are identifie d. There are no features to suggest malignancy. IMPRESSION: Stable benign mammogram. No evidence of malignancy in the breast. BI-RADS 2, BENIGN Reviewed, dictated and finalized at location B.
--- OUTSIDE RECORDS SUMMARY | 2025-05-03 09:23 | XMS_ITS | Clinical Summary ---
Author Organization [facility] Address [address] [place] [address] Care Team Providers Care Agricultural Technical Officer Name Role Phone Maldonado Brenner MD Primary Care Provider [phone] Social History Tobacco Use Types Packs/Day Years Used Date Smoking Tobacco: Never Assessed Comments Unknown Sex and Gender Information Value Date Recorded Sex Assigned at Not on file Legal Sex Female 11:50 AM GREEN HIDE INSPECTOR Gender Identity Not on file Sexual Orientation Not on file Plan of Treatment Health Maintenance Due Date Last Done Comments Hepatitis C 1963 DTaP, Tdap and Td Vaccines ( 1 - Tdap) 1965 Zoster Vaccines (1 of 2) 1996 Dexa Scan (General) 2011 Pneumococcal Vaccine: 50+ Ye ars (2 of 2 - PPSV23) 09/02/2019 09/02/2018 RSV Immunization or 60+ Years (1 - 1-dose 75+ series) 2021 COVID-19 Vaccine ( - 2023-2 5 season) 2024 Meningococcal B Vaccine Aged Out No l onger eligible based on patient's age to complete this topic Meningococcal Vaccine Aged Out No dami mu eligible based on patient's age to complete this topic RSV Immunizations Under 20 Months Aged Out No longer eligible based on patient's age to complete this topic Insurance [facility] Care Teams Agricultural Technical Officer Relationship Specialty Start Date End Date Maldonado Brenner MD [address] [place] [address] PCP - General INTERNAL MEDICINE 09/06/20
--- OUTSIDE RECORDS SUMMARY | 2025-05-03 09:23 | XMS_ITS | Clinical Summary ---
Author Organization [facility] Address [address] [place] [address] Care Team Providers Care Risk Modeler Name Role Phone Maldonado Brenner MD Primary Care Provider [phone] Source Comments [facility],non-[facility] Affiliates and Associated Physician Practices is amultiple site organization consisting of ambulatory clinics and hospital sitesin [place], [place], [place] and [place]. This disclosure is being madepursuant to the Care Everywhere program and may not contain all information available regarding this patient. Last updated 18.[facility] Social History Tobacco Use Types Packs/Day Years Used Date Smoking Tobacco: Never Assessed Comments Unknown Sex and Gender Information Value Date Recorded Sex Assigned at Not on file Legal Sex Female 12:15 PM HAND TIRE TRIMMER Gender Identity Not on file Sexual Orientation [...] VACCINE ( - 2023-2 5 season) 2024 DEPRESSION SCREENING 10/13/2024 INFLUENZA VACCINE (#1) 2025 HEPATITIS B VACCINE Aged Out No longe r eligible based on patient's age to complete this topic HIB VACCINE Aged Out No longer eligi ble based on patient's age to complete this topic HPV VACCINE Aged Out No longer eligi ble based on patient's age to complete this topic MENINGOCOCCAL (Group B) VACC INE SHARED DECISION-MAKING Aged Out No longer eligibl e based on patient's age to complete this topic MENINGOCOCCAL GROUPS A/C/Y/W VACCINE Aged Out No longer eligible b ased on patient's age to complete this topic Insurance [facility] Care Teams Risk Modeler Relationship Specialty Start Date End Date Maldonado Brenner MD [address] [place] [address] PCP - General 10/26/18
== END 2025-05-03 09:17 | disposition home or self-care (01) ==
LOC: ANHIMG 09:17
PROVIDERS: PCP Internal Medicine; Visit Provider Internal Medicine Hematology & Oncology
DX: Z12.31 Encounter for screening mammogram for malignant neoplasm of breast (principal); Z90.13 Acquired absence of bilateral breasts and nipples; Z92.3 Personal history of irradiation
CPT/HCPCS: 77063; 77067

== ENCOUNTER 2025-06-07 13:15 | Outpatient (CLI) | payer OTHER, SELFPAY ==
--- NOTE | ~2025-06-07 | MMUS_ITS ---
EXAMINATION: MM diagnostic olga RT w patty, US breast RT limited INDICATION: 79-year old female with prior history of bilateral lumpectomies with radiation therapy for breast cancer; presents for imaging evaluation of a foreign object coming out of a wound on the right breast. COMPARISON: 05/03/2025 through 08/23/2019 TECHNIQUE: Digital breast tomosynthesis True lateral view and spot compression in CC and MLO views of Right breast were obtained with computer-aided detection to assist in interpretation of the study. A radiopaque skin marker was placed over the extruding foreign object. MAMMOGRAM FINDINGS: There are scattered areas of fibroglandular density. Dystrophic calcifications is redemonstrated in the upper outer quadrant that correlates to the area of palpable lump. The calcifications extends superficially to the overlying skin. There is no new mass or suspicious calcifications seen in the rest of the breast. It is diffuse skin thickening overlying the entire right breast which has not significantly changed dating back to mammogram of 03/28/2023. RIGHT BREAST ULTRASOUND FINDINGS: Targeted ultrasound evaluation of the area of concern in the upper outer breast was completed. There are echogenic objects that represent calcifications seen within the skin with posterior acoustic shadowing. No suspicious solid or cystic mass is visualized. IMPRESSION: Benign-appearing dystrophic calcifications and correlating findings on the ultrasound examination seen in the area of concern, with no suspicious solid or cystic mass visualized. This findings are most likely related to postsurgical changes. Other possibility include calcifications of a retained foreign body in the breast. RECOMMENDATION: Clinical management of patient's area of abnormality. Patient will be due for screening mammogram in April 2026. BI-RADS 2, BENIGN Reviewed, dictated and finalized at location B. IMPRESSION: Benign-appearing dystrophic calcifications and correlating findings on the ultr asound examination seen in the area of concern, with no suspicious solid or cys tic mass visualized. This findings are most likely related to postsurgical lund ges. Other possibility include calcifications of a retained foreign body in the breast. RECOMMENDATION: Clinical management of patient's area of abnormality. Patient will be due for screening mammogram in April 2026. BI-RADS 2, BENIGN
--- OUTSIDE RECORDS SUMMARY | 2025-06-07 13:21 | XMS_ITS | Clinical Summary ---
Author Organization [facility] Address [address] [place] [address] Care Team Providers Care Devulcanizer Charger Name Role Phone Maldonado Brenner MD Primary Care Provider [phone] Source Comments [facility],non-[facility] Affiliates and Associated Physician Practices is amultiple site organization consisting of ambulatory clinics and hospital sitesin [place], [place], [place] and [place]. This disclosure is being madepursuant to the Care Everywhere program and may not contain all information available regarding this patient. Last updated 18.[facility] Social History Tobacco Use Types Packs/Day Years Used Date Smoking Tobacco: Never Assessed Comments Unknown Sex and Gender Information Value Date Recorded Sex Assigned at Not on file Legal Sex Female 12:15 PM STAGECRAFT PROFESSOR Gender Identity Not on file Sexual Orientation [...] patient's age to complete this topic Insurance [facility] Care Teams Devulcanizer Charger Relationship Specialty Start Date End Date Maldonado Brenner MD [address] [place] [address] PCP - General 10/26/18
--- OUTSIDE RECORDS SUMMARY | 2025-06-07 13:21 | XMS_ITS | Encounter Summary ---
Author Organization [facility] Address [address] [place] [address] Care Team Providers Care Gallery Or Museum Curator Name Role Phone Maldonado Brenner MD Primary Care Provider + Encounter Details Date Type Department Care Team (Late Contact Info) Description 12/29/2018 Chart Note [facility] Radiation Therapy [address] [place] [address] [place] [address] [place] [address] Social History Tobacco Use Types Packs/Day Years Used Date Smoking Tobacco: Never Smokeless Tobacco: Never Alcohol Use Standard Drinks/Week Comments Yes 0 (1 standard drink = 0.6 oz pur e alcohol) Comments No Sex and Gender Information Value Date Recorded Sex Assigned at Not on file Legal Sex Female 5:13 AM AUTOMOTIVE BRAKE SPECIALIST Gender Identity Not on file Sexual Orientation Not on file documented as of this encounter Plan of Treatment Upcoming Encounters Date Type Department Care Team (Late Contact Info) Description 06/28/2025 1:00 PM CDT Office Visit [facility] Oncology and Hematology - [place] [address] [place] [address] Joce Clancy MD [address] [place] [address] documented as of this encounter Visit Diagnoses Not on filedocumented in this encounter Care Teams Gallery Or Museum Curator Relationship Specialty Start Date End Date Maldonado Brenner MD [address] [place] [address] PCP - General Internal Medicine 09/29/18 documented as of this encounter
--- OUTSIDE RECORDS SUMMARY | 2025-06-07 13:21 | XMS_ITS | Encounter Summary ---
Author Organization [facility] Address [address] Attn: Epic Prelude ADT [place] [address] Care Team Providers Care Cnmt Name Role Phone Maldonado Brenner MD Primary Care Provider + Encounter Details Date Type Department Care Team (Late st Contact Info) Description 02/15/1995 Outpatient Historical Conversion, History Social History Tobacco Use Types Packs/Day Years Used Date Smoking Tobacco: Never Assessed Comments Unknown Sex and Gender Information Value Date Recorded Sex Assigned at Not on file Legal Sex Female 5:13 AM SAFETY NET MAKER Gender Identity Not on file Sexual Orientation Not on file documented as of this encounter Plan of Treatment Upcoming Encounters Date Type Department Care Team (Late st Contact Info) Description 06/28/2025 1:00 PM CDT Office Visit [facility] Oncology and Hematology - [place] [address] [facility] [address] [place] [address] Joce Clancy MD [address] [facility] [address] [place] [address] documented as of this encounter Visit Diagnoses Not on filedocumented in this encounter Care Teams Cnmt Relationship Specialty Start Date End Date Maldonado Brenner MD [address] [place] [address] PCP - General Internal Medicine 09/29/18 documented as of this encounter
--- OUTSIDE RECORDS SUMMARY | 2025-06-07 13:21 | XMS_ITS | Clinical Summary ---
Author Organization [facility] Address [address] [place] [address] Care Team Providers Care Underlay Stitcher Name Role Phone Maldonado Brenner MD Primary [...] as needed for Pain, Mild. Active Fish Oil-[employer]-3 Fatty Acids (FISH OIL) 360-1,200 mg Capsule Take 1 Capsule by mouth daily. Active niacin (NIACOR) 500 mg tablet Take 2,000 mg by mouth daily. Active C,E,zinc,coppe r 11/xhiiv5o/lut (OCUVITE ADULT 50 PLUS ORAL) Take 50 [...] TABLET(1 MG) BY MOUTH DAILY 90 Tablet 3 5 Active Active Problems Problem Noted Date Diagnosed [...] Encounters Date Type Department Care Team Description 06/01/2025 External Device Data STL ABSTRACTION Provider, Abstract 05/17/2025 External Device Data STL ABSTRACTION Provider, Abstract 05/16/[address] [facility] Oncology and Hematology [facility] [address] [place] [phone] Joce Clancy MD Lump in R Breast 05/04/[address] [facility] Oncology and Hematology [facility] [address] [place] [address] Joce Clancy MD 04/27/2025 External Device Data STL ABSTRACTION Provider, Abstract 04/26/2025 External Device Data [facility] ABSTRACTION Provider, Abstract 04/05/2025 External Device Data ST[facility] ABSTRACTION Provider, Abstract 03/15/2025 External Device Data STL ABSTRACTION Provider, Abstract 03/08/2025 External Device Data [facility] ABSTRACTION Provider, Abstract 03/08/2025 External Device Data [facility] ABSTRACTION Provider, Abstract from Last 3 Months Family History Medical [...] on file Legal Sex Female 5:13 AM ROVING INSPECTOR Gender Identity Not on file Sexual Orientation Not on file Last Filed Vital Signs Vital Sign Reading Time Taken Comments Blood Pressure 117/65 11/03/2024 3:13 PM ROVING INSPECTOR Pulse 75 11/03/2024 3:13 PM ROVING INSPECTOR Temperature 36.3 C (97.3 F) 11/03/2024 3:13 PM ROVING INSPECTOR Respiratory Rate 15 11/03/2024 3:13 PM ROVING INSPECTOR Oxygen Saturation 98% 11/03/2024 3:13 PM ROVING INSPECTOR Inhaled Oxygen Concentration - - Weight 73.6 kg (162 lb 3.2 oz) 11/03/2024 3:13 P M ROVING INSPECTOR Height 157.5 cm (5' 2) 03/12/2022 2:56 PM CDT Body Mass Index 29.67 03/12/2022 2:56 PM CDT Plan of Treatment Upcoming Encounters Date Type Department Care Team (Late st Contact Info) Description 06/28/2025 1:00 PM CDT Office Visit [facility] Oncology and Hematology - [place] [address] [place] [address] [facility] [address] [place] [address] Joce Clancy MD [address] [facility] [address] [place] [address] Health Maintenance Due Date Last Done Comments DTAP/TDAP/TD VACCINES (1 - Tdap) 1964 PNEUMOCOCCAL VACCINE 50+ YEARS (1 of 1 - PCV) 09/05/19 96 ZOSTER VACCINE (1 of 2) 1996 RSV VACCINE (60+ or ) (1 - 1-dose 75+ series) 2021 OSTEOPOROSIS SCREENING 02/13/2025 02/14/2020 INFLUENZA VACCINE (#1) 2025 Procedures Procedure Name Priority Date/Time Associated Diagnosis Comments MAMMO SCREENING BILAT Routine 05/03/2025 1:19 PM CDT XR DEXA BONE DENSITY AXIAL 1 OR MORE SITES Routine 02/14/2020 Osteopenia of multiple sites from Last 3 Months or Most Recently Relevant to Health Maintenance Results * MAMMO SCREENING BILAT (05/03/2025 1:19 PM CDT) Anatomical Region Laterality Modality Breast Bilateral Mammography us Joce Clancy MD MAMMO ORDERABLES Final Result * XR DEXA BONE DENSITY AXIAL 1 OR MORE SITES (02/14/2020) Anatomical Region Laterality Modality Other Joce Clancy MD DIAGNOSTIC IMAGING ORDERABLES F inal Result from Last 3 Months or Most Recently Relevant to Health Maintenance Insurance AETNA SIGNATURE ADMIN [facility] SIGN[facility] ONLY Care Teams Underlay Stitcher Relationship Specialty Start Date End Date Maldonado Brenner MD [address] [place] [phone] PCP - General Internal Medicine 09/29/18
== END 2025-06-07 13:16 | disposition home or self-care (01) ==
PROVIDERS: PCP Internal Medicine; Visit Provider Internal Medicine Hematology & Oncology
DX: N63.0 Unspecified lump in unspecified breast (principal); Z85.3 Personal history of malignant neoplasm of breast
CPT/HCPCS: 76642; 77061; 77065; G0279

== ENCOUNTER 2025-06-21 08:12 | Outpatient (CLI) | payer OTHER, SELFPAY ==
[2025-06-21 08:27] LABS: Hematocrit 41.9 % (37.0-47.0); Hemoglobin 14.1 g/dL (12.0-15.0); Immature Granulocyte Percent A 0.2 % (0-0.5); Lymphocytes Absolute Auto 1.21 K/mm3 (0.9-3.2); Mean Corpuscular HGB Conc 33.7 g/dl (32-36); Mean Corpuscular Hemoglobin 30.6 pg (26-34); Mean Corpuscular Volume 90.9 fl (80-100); Nucleated Red Blood Cells Absolute Auto 0.000 K/mm3 (0.0-0.012); Nucleated Red Blood Cells Perc 0.0 % (0.0-0.2); Platelet Count Result 232 k/mm3 (150-375); Red Blood Count 4.61 M/mm3 (4.2-5.4); White Blood Count 5.7 K/mm3 (4.5-10.0)
--- OUTSIDE RECORDS SUMMARY | 2025-06-21 08:36 | XMS_ITS | Encounter Summary ---
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 Gender Identity Not on file Sexual Orientation Not on file documented as of this encounter Plan of Treatment Upcoming Encounters Date Type Department Care Team (Late st Contact Info) Description 06/28/2025 1:00 PM CDT Office Visit [facility] Oncology and Hematology - [place] [address] [facility] [address] [place] [address] Joce Clancy MD [address] [facility] [address] [place] [address] documented as of this encounter Visit Diagnoses Not on filedocumented in this encounter Care Teams Director Of Product Design Relationship Specialty Start Date End Date Madlonado Brenner MD [address] [place] [address] PCP - General Internal Medicine 09/29/18 documented as of this encounter
--- OUTSIDE RECORDS SUMMARY | 2025-06-21 08:36 | XMS_ITS | Clinical Summary ---
Author Organization [facility] Address [address] [place] [address] Care Team Providers Care Religious Studies Professor Name Role Phone Maldonado Brenner MD Primary [...] as needed for Pain, Mild. Active Fish Oil-[place]-3 Fatty Acids (FISH OIL) 360-1,200 mg Capsule Take 1 Capsule by mouth daily. Active niacin (NIACOR) 500 mg tablet Take 2,000 mg by mouth daily. Active C,E,zinc,coppe r 11/tkuyh2d/lut (OCUVITE ADULT 50 PLUS ORAL) Take 50 [...] Encounters Date Type Department Care Team Description 06/08/2025 Orders Only [facility] Oncology and Hematology - [place] [address] [place] [address] Joce Clancy MD 06/01/2025 External Device Data STL ABSTRACTION Provider, Abstract 05/17/2025 External Device Data STL ABSTRACTION Provider, Abstract 05/16/2025 Telephone [facility] Oncology and Hematology - [place] [address] [place] [address] Joce Clancy MD Lump in R Breast 05/04/2025 Orders Only [facility] Oncology and Hematology - [place] [address] [place] [address] Joce Clancy MD 04/27/2025 External Device Data [...] on file Legal Sex Female 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 DRUM BARKER OPERATOR Gender Identity Not on file Sexual Orientation Not on file Last Filed Vital Signs Vital Sign Reading Time Taken Comments Blood Pressure 117/65 11/03/2024 3:13 PM DRUM BARKER OPERATOR Pulse 75 11/03/2024 3:13 PM DRUM BARKER OPERATOR Temperature 36.3 C (97.3 F) 11/03/2024 3:13 PM DRUM BARKER OPERATOR Respiratory Rate 15 11/03/2024 3:13 PM DRUM BARKER OPERATOR Oxygen Saturation 98% 11/03/2024 3:13 PM DRUM BARKER OPERATOR Inhaled Oxygen Concentration - - Weight 73.6 kg (162 lb 3.2 oz) 11/03/2024 3:13 P M DRUM BARKER OPERATOR Height 157.5 cm (5' 2) 03/12/2022 2:56 PM CDT Body Mass Index 29.67 03/12/2022 2:56 PM CDT Plan of Treatment Upcoming Encounters Date Type Department Care Team (Late st Contact Info) Description 06/28/2025 1:00 PM CDT Office Visit [facility] Oncology and Hematology - [place] [address] [place] [address] [facility] [address] [place] [address] Joce Clancy MD [address] [facility] [address] [place] [address] Health Maintenance Due Date Last Done Comments DTAP/TDAP/TD VACCINES (1 - Tdap) 1964 Traditional Medicare (ACO) Annual Wellness Visit 09/05 PNEUMOCOCCAL VACCINE 50+ YEARS (1 of 1 - PCV) 09/05/19 96 ZOSTER VACCINE (1 of 2) 1996 RSV VACCINE (60+ or ) (1 - 1-dose 75+ series) 2021 Preventative Visit- Commercial 10/13/2024 OSTEOPOROSIS SCREENING 02/13/2025 02/14/2020 INFLUENZA VACCINE (#1) 2025 Procedures Procedure Name Priority Date/Time Associated Diagnosis Comments MAMMO DIAGNOSTIC UNI RIGHT W OR WO CAD Routine 06/07/2025 7:53 AM CDT MAMMO SCREENING BILAT Routine 05/03/2025 1:19 PM CDT XR DEXA BONE DENSITY AXIAL 1 OR MORE SITES Routine 02/14/2020 Osteopenia of multiple sites from Last 3 Months or Most Recently Relevant to Health Maintenance Results * MAMMO DIAGNOSTIC UNI RIGHT W OR WO CAD (06/07/2025 7:53 AM CDT) Anatomical Region Laterality Modality Breast Right Mammography us Joce Clancy MD MAMMO ORDERABLES Final Result * MAMMO SCREENING BILAT (05/03/2025 1:19 PM [...] PART A HOSPITAL ONLY AETNA SIGNATURE ADMIN [facility] MEDICARE PART A HOSPITAL ONLY Care Teams Religious Studies Professor Relationship Specialty Start Date End Date Maldonado Brenner MD [address] [place] [phone] PCP - General Internal Medicine 09/29/18
--- OUTSIDE RECORDS SUMMARY | 2025-06-21 08:36 | XMS_ITS | Clinical Summary ---
Author Organization [facility] Address [address] [place] [address] Care Team Providers Care Whipped Topping Finisher Name Role Phone Maldonado Brenner MD Primary Care Provider [phone] Social History Tobacco Use Types Packs/Day Years Used Date Smoking Tobacco: Never Assessed Comments Unknown Sex and Gender Information Value Date Recorded Sex Assigned at Not on file Legal Sex Female 11:50 AM CITY ADMINISTRATOR Gender Identity Not on file Sexual Orientation [...] COVID-19 Vaccine ( - 2023-2 5 season) 2025 Meningococcal B Vaccine Aged Out No l onger eligible based on patient's age to complete this topic Meningococcal Vaccine Aged Out No dami mu eligible based on patient's age to complete this topic RSV Immunizations Under 20 Months Aged Out No longer eligible based on patient's age to complete this topic Insurance [facility] Care Teams Whipped Topping Finisher Relationship Specialty Start Date End Date Maldonado Brenner MD [address] [place] [address] PCP - General INTERNAL MEDICINE 09/06/20
--- OUTSIDE RECORDS SUMMARY | 2025-06-21 08:36 | XMS_ITS | Encounter Summary ---
Author Organization [facility] Address [address] [place] [address] Care Team Providers Care Bird Tender Name Role Phone Maldonado Brenner MD Primary Care Provider + Encounter Details Date Type Department Care Team (Late Contact Info) Description 12/29/2018 Chart Note [facility] Radiation Therapy [address] [place] [address] [place] [address] [place] [address] Social History Tobacco Use Types Packs/Day Years Used Date Smoking Tobacco: Never Smokeless Tobacco: Never Alcohol Use Standard Drinks/Week Comments Yes 0 (1 standard drink = 0.6 oz pur e alcohol) Comments No Sex and Gender Information Value Date Recorded Sex Assigned at Not on file Legal Sex Female 5: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 TAPE DUPLICATOR Gender Identity Not on file Sexual Orientation Not on file documented as of this encounter Plan of Treatment Upcoming Encounters Date Type Department Care Team (Late Contact Info) Description 06/28/2025 1:00 PM CDT Office Visit [facility] Oncology and Hematology - [place] [address] [place] [address] Joce Clancy MD [address] [facility] [address] [place] [address] documented as of this encounter Visit Diagnoses Not on filedocumented in this encounter Care Teams Bird Tender Relationship Specialty Start Date End Date Maldonado Brenner MD [address] [place] [address] PCP - General Internal Medicine 09/29/18 documented as of this encounter
[2025-06-21 11:58] LABS: Alanine Aminotransferase 77 U/L (6-35); Albumin Level 4.1 g/dL (3.5-5.1); Alkaline Phosphatase 150 U/L (38-126); Anion Gap 8 mmol/L (4-12); Aspartate Amino Transferase 61 U/L (14-36); Bilirubin,Total 0.8 mg/dL (0.2-1.3); Blood Urea Nitrogen 22 mg/dL (7-17); Calcium 9.4 mg/dL (8.4-10.2); Carbon Dioxide 28 mmol/L (22-30); Chloride 104 mmol/L (98-107); Estimated Glomerular Filt Rate > 60; Glucose 93 mg/dL (65-110); Potassium 3.4 mmol/L (3.4-5.0); Sodium 140 mmol/L (137-145); Total Protein 7.2 g/dL (6.3-8.2)
== END 2025-06-21 08:13 | disposition home or self-care (01) ==
PROVIDERS: PCP Internal Medicine; Visit Provider Internal Medicine Hematology & Oncology
DX: C50.412 Malignant neoplasm of upper-outer quadrant of left female breast (principal); Z17.0 Estrogen receptor positive status [ER+]
CPT/HCPCS: 36415; 80053; 85025; 86300